=== PATIENT | male | born 1950 | race American Indian/Alaskan Native ===

== ENCOUNTER → 2018-07-13 11:00 | Outpatient (CLI) | payer MEDICARE, MEDICAID, SELFPAY ==
[2018-07-13 12:13] LABS: Add Manual Diff / Slide Review NO; Basophils Percent Auto 0.6 % (0-2); Eosinophils Percent Auto 2.8 % (2-4); Hematocrit 36.1 % (41-53); Hemoglobin 12.3 g/dL (13.5-17.5); Lymphocytes Percent Auto 15.5 % (25-40); Mean Corpuscular HGB Conc 34.1 % (30-36); Mean Corpuscular Hemoglobin 27.9 PG (26-34); Mean Corpuscular Volume 81.9 fL (80-100); Neutrophils Absolute Auto 7200 /uL (3000-5900); Neutrophils Percent Auto 74.1 % (50-75); Platelet Count 280 X10^3/uL (150-400); Red Blood Cell Count 4.41 X10^6/uL (4.5-5.9); White Blood Cell Count 9.7 X10^3/uL (4.5-11.0)
[2018-07-13 12:19] LABS: INR 1.3 (0.9-1.3); Prothrombin Time 14.5 SECONDS (10.1-12.7)
[2018-07-13 12:24] LABS: Alanine Aminotransferase 25 IU/L (21-72); Albumin 3.7 g/dL (3.5-5.0); Alkaline Phosphatase 148 U/L (38-126); Aspartate Aminotransferase 23 IU/L (17-59); BUN Creatinine Ratio 9.3 (6-22); Bilirubin Total 1.5 mg/dL (0.2-1.3); Bilirubin Unconjugated 1.1 mg/dL (0.0-1.1); Blood Urea Nitrogen 13 mg/dL (9-20); Carbon Dioxide 25 mmol/L (22-32); Chloride 108 mmol/L (98-107); Estimated Glomerular Filt Rate 50.5 mL/min (>60); Gamma Glutamyl Transpeptidase 108 U/L (15-73); Globulin 3.8 g/dL (1.7-4.1); Glucose 117 mg/dL (80-110); HEMOLYSIS < 15 (0-50); Magnesium 1.7 mg/dL (1.6-2.3); Phosphorous 2.8 mg/dL (2.3-3.7); Potassium 4.3 mmol/L (3.4-5.1); Sodium 145 mmol/L (137-145); Total Protein 7.5 g/dL (6.3-8.2)
[2018-07-13 15:11] LABS: Hepatitis B Surface Antigen NEGATIVE s/c (NEGATIVE)
[2018-07-16 05:58] LABS: Tacrolimus 7.1 mcg/L (5.0-20.0)
== END ==
PROVIDERS: Family Provider Registered Nurse; Visit Provider Internal Medicine Gastroenterology
DX: Z94.4 Liver transplant status (principal); Z48.298 Encounter for aftercare following other organ transplant; Z79.899 Other long term (current) drug therapy
CPT/HCPCS: 36415; 80048; 80076; 80197; 82977; 83735; 84100; 85025; 85610; 87340; 87522

== ENCOUNTER → 2018-11-23 13:59 | Outpatient (CLI) | payer MEDICARE, MEDICAID, SELFPAY ==
[2018-11-23 14:34] LABS: Add Manual Diff / Slide Review NO; Basophils Absolute Auto 100 /uL (0-100); Basophils Percent Auto 1.2 % (0-2); Eosinophils Absolute Auto 300 /uL (0-450); Eosinophils Percent Auto 3.2 % (2-4); Hematocrit 35.5 % (41-53); Hemoglobin 12.2 g/dL (13.5-17.5); Lymphocytes Absolute Auto 1700 /uL (1100-4500); Lymphocytes Percent Auto 21.9 % (25-40); Mean Corpuscular HGB Conc 34.3 % (30-36); Mean Corpuscular Hemoglobin 28.7 PG (26-34); Mean Corpuscular Volume 83.6 fL (80-100); Monocytes Absolute Auto 600 /uL (0-900); Monocytes Percent Auto 7.2 % (3-14); Neutrophils Absolute Auto 5300 /uL (1500-7000); Neutrophils Percent Auto 66.5 % (50-75); Platelet Count 298 X10^3/uL (150-400); Red Blood Cell Count 4.25 X10^6/uL (4.5-5.9); White Blood Cell Count 7.9 X10^3/uL (4.5-11.0)
[2018-11-23 14:46] LABS: INR 1.2 (0.9-1.3); Prothrombin Time 14.2 SECONDS (10.1-12.7)
[2018-11-23 14:51] LABS: Gamma Glutamyl Transpeptidase 87 U/L (15-73); Magnesium 1.7 mg/dL (1.6-2.3); Phosphorous 2.7 mg/dL (2.3-3.7)
[2018-11-26 08:24] LABS: Tacrolimus 4.7 mcg/L (5.0-20.0)
== END ==
PROVIDERS: Family Provider Registered Nurse; Visit Provider Internal Medicine Gastroenterology
DX: Z94.4 Liver transplant status (principal); Z79.899 Other long term (current) drug therapy; E55.9 Vitamin D deficiency, unspecified; Z48.298 Encounter for aftercare following other organ transplant
CPT/HCPCS: 36415; 80197; 82977; 83735; 84100; 85025; 85610

== ENCOUNTER 2018-12-20 12:17 | Emergency (ER) | payer MEDICARE, SELFPAY ==
[2018-12-20 12:30] VITALS: PULSE 61; RESP 17; TEMP 36.1; O2SAT 97; BMI 30.2
[2018-12-20 12:44] VITALS: BP 147/87
--- NOTE | 2018-12-20 12:49 | ED_ITS ---
HPI - Nausea/Vomiting/Diarrhea <SIGRID Abarca - Last Filed: 12/20/18 22:07> General Chief complaint: Nausea/Vomiting/Diarrhea Stated complaint: Nausea/Vomitin Time Seen by Provider: 12/20/18 12:49 Source: patient Mode of arrival: ambulatory Limitations: no limitations History of Present Illness HPI Narrative: 68-year-old male with history of liver transplant 10 years ago who is a former smoker here for complaint of nausea vomiting that started earlier today. He reports having multiple episodes of vomiting that started this morning. He denies any chest pain. No shortness of breath. No abdominal pain. No urinary symptoms. No flank pain. He denies any fevers. He does states that he had a night sweats last night. He denies any contact that have similar symptoms. He is ambulatory into the emergency room. No stressors or relievers of his symptoms reported. Related Data Home Medications Medication Instructions Recorded Confirmed tacrolimus 1 mg PO BID 12/20/18 12/20/18 Previous Rx's Medication Instructions Recorded betamethasone dipropionate 0.05 % 1 applictn TOPICAL TIDP PRN #15 11/19/18 topical cream gram ondansetron 4 mg PO BID-TID PRN #12 tab 12/20/18 Allergies Allergy/AdvReac Type Severity Reaction Status Date / Time No Known Drug Allergies Allergy Verified 08/16/18 10:23 Review of Systems <SIGRID Abarca - Last Filed: 12/20/18 22:07> Constitutional Denies chills, Denies fever(s), Denies lethargy and Denies weakness Eyes Denies change in vision, Denies eye discharge, Denies irritation and Denies loss of vision ENT Ears, Nose, Mouth, and Throat: Denies change in voice, Denies neck pain and Denies sore throat Cardiovascular Denies chest pain, Denies irregular heart rhythm, Denies lightheadedness, Denies palpitations, Denies dyspnea, Denies dyspnea on exertion and Denies orthopnea Respiratory Denies cough, Denies dyspnea, Denies dyspnea on exertion and Denies wheezing Gastrointestinal Gastrointestinal: Reports vomiting Genitourinary Denies hematuria, Denies flank pain, Denies urinary incontinence and Denies urinary urgency Musculoskeletal Denies neck pain Integumentary/Breasts Denies pruritus, Denies erythema, Denies rash and Denies wounds Neurologic Denies confusion, Denies loss of vision and Denies weakness Psychiatric Denies anxiety, Denies confusion, Denies depression, Denies homicidal ideation and Denies suicidal ideation Endocrine Denies palpitations Hematologic/Lymphatic Denies easy bruising Allergic/Immunologic Denies wheezing PFSH <SIGRID Abarca - Last Filed: 12/20/18 22:07> Medical History Chronic renal failure, stage 2 (mild) (Chronic) 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 leisure activities: art and other (Anything by water.) Smoking Status: Former smoker Tobacco: How many years used: 20 Smokeless tobacco user: other (Cigarettes) quit status: quit date established (~2000) second hand exposure: Yes (Off and on, nothing prolonged.) alcohol intake: never substance use type: does not use Exam <SIGRID Abarca - Last Filed: 12/20/18 22:07> Initial Vital Signs Initial Vital Signs: Vital Signs Temperature 96.9 F L 12/20/18 12:30 Pulse Rate 61 12/20/18 12:30 Respiratory Rate 17 12/20/18 12:30 Pulse Oximetry 97 12/20/18 12:30 Const General: cooperative and well developed Nutritional Appearance: well nourished Orientation: alert, awake, oriented x3 and not confused [facility] Mouth: oral mucosae normal and moist mucous membranes Eyes General: appearance normal, both eyes and all related structures Eyelids: eyelids normal Conjunctivae: conjunctivae normal Sclera: sclerae normal Pupils: PERRL EOM: EOM intact bilaterally Resp Effort & Inspection: normal respiratory effort, able to speak in complete sentences, no respiratory distress and no use of accessory muscles Auscultation: clear to auscultation bilaterally, no rales, no rhonchi and no wheezes Cardio Rate: regular rate Rhythm: regular rhythm Heart Sounds: no click, no gallops, no murmurs and no rubs Pulses: normal peripheral pulses GI Inspection: non-distended Palpation: soft, no hepatosplenomegaly, No guarding, No pulsatile mass and No tender Auscultation: normal bowel sounds General: No CVA tenderness Skin General: no rashes or lesions noted, No jaundice and No petechiae Neuro General: alert, oriented x3, gait normal and no focal motor deficits Speech: speech normal <Amando Estrada DO - Last Filed: 12/24/18 18:44> Initial Vital Signs Initial Vital Signs: Vital Signs Temperature 96.9 F L 12/20/18 12:30 Pulse Rate 61 12/20/18 12:30 Respiratory Rate 17 12/20/18 12:30 Pulse Oximetry 97 12/20/18 12:30 Course <SIGRID Abarca - Last Filed: 12/20/18 22:07> Orders Ordered: Discontinued Medications Diphenhydramine HCl (Benadryl) 25 mg IV NOW ONE Stop: 12/20/18 13:19 Last Admin: 12/20/18 13:28 Dose: 25 mg Sodium Chloride (Normal Saline 0.9%) 1,000 mls @ 1,000 mls/hr IV BOLUS ONE Stop: 12/20/18 14:06 Last Infusion: 12/20/18 14:18 Dose: 0 mls/hr Admin: 12/20/18 13:07 Dose: 1,000 mls/hr Ondansetron HCl (Zofran) 4 mg IV NOW ONE Stop: 12/20/18 13:05 Last Admin: 12/20/18 13:06 Dose: 4 mg Ondansetron HCl (Zofran) 4 mg IV NOW ONE Stop: 12/20/18 13:08 Last Admin: 12/20/18 13:07 Dose: 4 mg Prochlorperazine (Compazine) 10 mg IV NOW ONE Stop: 12/20/18 13:19 Last Admin: 12/20/18 13:28 Dose: 10 mg Vital Signs - 8 hr 12/20/18 14:38 Pulse Rate 64 Respiratory Rate 16 Blood Pressure [Right Arm] 147/67 H Pulse Oximetry 100 <Amando Estrada DO - Last Filed: 12/24/18 18:44> Orders Ordered: Discontinued Medications Diphenhydramine HCl (Benadryl) 25 mg IV NOW ONE Stop: 12/20/18 13:19 Last Admin: 12/20/18 13:28 Dose: 25 mg Sodium Chloride (Normal Saline 0.9%) 1,000 mls @ 1,000 mls/hr IV BOLUS ONE Stop: 12/20/18 14:06 Last Infusion: 12/20/18 14:18 Dose: 0 mls/hr Admin: 12/20/18 13:07 Dose: 1,000 mls/hr Ondansetron HCl (Zofran) 4 mg IV NOW ONE Stop: 12/20/18 13:05 Last Admin: 12/20/18 13:06 Dose: 4 mg Ondansetron HCl (Zofran) 4 mg IV NOW ONE Stop: 12/20/18 13:08 Last Admin: 12/20/18 13:07 Dose: 4 mg Prochlorperazine (Compazine) 10 mg IV NOW ONE Stop: 12/20/18 13:19 Last Admin: 12/20/18 13:28 Dose: 10 mg Vital Signs - 8 hr 12/20/18 14:38 Pulse Rate 64 Respiratory Rate 16 Blood Pressure [Right Arm] 147/67 H Pulse Oximetry 100 MDM - Nausea/Vomiting/Diarrhea <SIGRID Abarca - Last Filed: 12/20/18 22:07> Lab Data Result diagrams: 12/20/18 13:00 12/20/18 13:00 Lab Results 12/20/18 12/20/18 12/20/18 Range/Units 13:00 13:00 13:00 WBC 8.6 (4.5-11.0) X10^3/uL RBC 4.59 (4.5-5.9) X10^6/uL Hgb 13.2 L (13.5-17.5) g/dL Hct 39.0 L (41-53) % MCV 84.9 (80-100) fL MCH 28.7 (26-34) PG MCHC 33.8 (30-36) % RDW 17.1 H (11.6-14.8) % Plt Count 272 (150-400) X10^3/uL Neut % (Auto) 66.3 (50-75) % Lymph % (Auto) 21.5 L (25-40) % [place] % (Auto) 8.2 (3-14) % Eos % (Auto) 2.6 (2-4) % Baso % (Auto) 1.4 (0-2) % Neut # (Auto) 5700 (7317-6171) /uL Lymph # (Auto) 1800 (1876-4281) /uL [place] # (Auto) 700 (0-900) /uL Eos # (Auto) 200 (0-450) /uL Baso # (Auto) 100 (0-100) /uL PT 14.3 H (10.1-12.7) SECONDS INR 1.2 (0.9-1.3) APTT 33 (26.4-36.2) SECONDS Sodium 140 (137-145) mmol/L Potassium 3.6 (3.4-5.1) mmol/L Chloride 108 H (98-107) mmol/L Carbon Dioxide 18 L (22-32) mmol/L BUN 13 (9-20) mg/dL Creatinine 1.30 H (0.66-1.25) mg/dL Estimated GFR 54.9 L (>60) mL/min BUN/Creatinine Ratio 10.0 (6-22) Glucose 147 H (80-110) mg/dL Calcium 9.0 (8.4-10.2) mg/dL Total Bilirubin 1.6 H (0.2-1.3) mg/dL AST 22 (17-59) IU/L ALT 22 (21-72) IU/L Alkaline Phosphatase 147 H (38-126) U/L Total Protein 8.1 (6.3-8.2) g/dL Albumin 4.0 (3.5-5.0) g/dL Globulin 4.1 (1.7-4.1) g/dL Albumin/Globulin Ratio 1.0 (1.0-2.8) Lipase 145 (23-300) U/L [facility] Narrative Medical decision making narrative: CBC was obtained was unremarkable. INR was normal at 1.2. chemistry was obtained and shows bump in creatinine of 1.3 and decreased GFR at 54.9 most likely due to nausea vomiting. AST and ALT were unremarkable. Alk-phos was mildly elevated at 147. Lipase was normal. He was given anti nausea medication and fluids in the emergency room which reduced his symptoms. He was in no discomfort. Differential between nausea vomiting secondary to a virus or due to daily marijuana use. He is prescribed Zofran to help with any nausea vomiting. Plenty of fluids slowly advance diet as tolerated. Follow up with primary care provider. Return emergency room for any worsening symptoms. <Amando Estrada, - Last Filed: 12/24/18 18:44> Lab Data Lab Results 12/20/18 12/20/18 12/20/18 Range/Units 13:00 13:00 13:00 WBC 8.6 (4.5-11.0) X10^3/uL RBC 4.59 (4.5-5.9) X10^6/uL Hgb 13.2 L (13.5-17.5) g/dL Hct 39.0 L (41-53) % MCV 84.9 (80-100) fL MCH 28.7 (26-34) PG MCHC 33.8 (30-36) % RDW 17.1 H (11.6-14.8) % Plt Count 272 (150-400) X10^3/uL Neut % (Auto) 66.3 (50-75) % Lymph % (Auto) 21.5 L (25-40) % [place] % (Auto) 8.2 (3-14) % Eos % (Auto) 2.6 (2-4) % Baso % (Auto) 1.4 (0-2) % Neut # (Auto) 5700 (2059-9566) /uL Lymph # (Auto) 1800 (1913-2737) /uL [place] # (Auto) 700 (0-900) /uL Eos # (Auto) 200 (0-450) /uL Baso # (Auto) 100 (0-100) /uL PT 14.3 H (10.1-12.7) SECONDS INR 1.2 (0.9-1.3) APTT 33 (26.4-36.2) SECONDS Sodium 140 (137-145) mmol/L Potassium 3.6 (3.4-5.1) mmol/L Chloride 108 H (98-107) mmol/L Carbon Dioxide 18 L (22-32) mmol/L BUN 13 (9-20) mg/dL Creatinine 1.30 H (0.66-1.25) mg/dL Estimated GFR 54.9 L (>60) mL/min BUN/Creatinine Ratio 10.0 (6-22) Glucose 147 H (80-110) mg/dL Calcium 9.0 (8.4-10.2) mg/dL Total Bilirubin 1.6 H (0.2-1.3) mg/dL AST 22 (17-59) IU/L ALT 22 (21-72) IU/L Alkaline Phosphatase 147 H (38-126) U/L Total Protein 8.1 (6.3-8.2) g/dL Albumin 4.0 (3.5-5.0) g/dL Globulin 4.1 (1.7-4.1) g/dL Albumin/Globulin Ratio 1.0 (1.0-2.8) Lipase 145 (23-300) U/L Discharge Plan Departure Patient Disposition: Home Clinical Impression: Nausea & vomiting Qualifiers: Vomiting type: unspecified Vomiting Intractability: non-intractable Qualified Code(s): R11.2 - Nausea with vomiting, unspecified Discharge Date/Time: 12/20/18 15:09 Interventions: ED Discharge Assessment Last Done: 12/20/18 15:09 Instructions: DI for Vomiting -- Adult Activity Restrictions/Additional Instructions: Laboratory results today were unremarkable. Vomiting was improved after anti nausea medication and some fluids. UR prescribed Zofran to help with the nausea vomiting use as directed. Plenty of fluids. Slowly advance diet as tolerated. Follow up with her primary care provider. Return emergency room for any worsening symptoms. Symptoms appear to be due to a virus. May also be due to frequent marijuana use. Prescriptions: New ondansetron 4 mg tablet,disintegrating 4 mg PO BID-TID PRN (Reason: nausea and vomiting) Qty: 12 RF: 0 No Action betamethasone dipropionate 0.05 % cream 1 applictn Topical TIDP PRN (Reason: rash) Qty: 15 RF: 5 tacrolimus 1 mg capsule 1 mg PO BID RF: 0 Referrals: [facility] [Provider Group] <Amando Estrada DO - Last Filed: 12/24/18 18:44> Cosign ED Attending Swapna Attestation: I was available for consultation during this patient's emergency department encounter
[2018-12-20] MEDS: ONDANSETRON 4 MG/2 ML INJ IV ×2 (13:06→13:07)
[2018-12-20] MEDS: SODIUM CHLORIDE 0.9% 1,000 ML 1000 ML IV (13:07)
[2018-12-20 13:11] LABS: Add Manual Diff / Slide Review NO; Basophils Absolute Auto 100 /uL (0-100); Basophils Percent Auto 1.4 % (0-2); Eosinophils Absolute Auto 200 /uL (0-450); Eosinophils Percent Auto 2.6 % (2-4); Hemoglobin 13.2 g/dL (13.5-17.5); Lymphocytes Absolute Auto 1800 /uL (1100-4500); Lymphocytes Percent Auto 21.5 % (25-40); Mean Corpuscular HGB Conc 33.8 % (30-36); Mean Corpuscular Hemoglobin 28.7 PG (26-34); Mean Corpuscular Volume 84.9 fL (80-100); Monocytes Absolute Auto 700 /uL (0-900); Monocytes Percent Auto 8.2 % (3-14); Neutrophils Absolute Auto 5700 /uL (1500-7000); Neutrophils Percent Auto 66.3 % (50-75); Platelet Count 272 X10^3/uL (150-400); Red Blood Cell Count 4.59 X10^6/uL (4.5-5.9); Red Cell Distribution Width 17.1 % (11.6-14.8); White Blood Cell Count 8.6 X10^3/uL (4.5-11.0)
[2018-12-20 13:19] LABS: INR 1.2 (0.9-1.3); Prothrombin Time 14.3 SECONDS (10.1-12.7)
[2018-12-20 13:22] LABS: PTT Partial Thromboplastin Tim 33 SECONDS (26.4-36.2)
[2018-12-20 13:23] LABS: Alanine Aminotransferase 22 IU/L (21-72); Alkaline Phosphatase 147 U/L (38-126); Aspartate Aminotransferase 22 IU/L (17-59); Bilirubin Total 1.6 mg/dL (0.2-1.3); Blood Urea Nitrogen 13 mg/dL (9-20); Carbon Dioxide 18 mmol/L (22-32); Chloride 108 mmol/L (98-107); Estimated Glomerular Filt Rate 54.9 mL/min (>60); Globulin 4.1 g/dL (1.7-4.1); Glucose 147 mg/dL (80-110); HEMOLYSIS 17 (0-50); Lipase 145 U/L (23-300); Potassium 3.6 mmol/L (3.4-5.1); Sodium 140 mmol/L (137-145); Total Protein 8.1 g/dL (6.3-8.2)
[2018-12-20] MEDS: PROCHLORPERAZINE 10 MG/2 ML VIAL IV (13:28)
[2018-12-20] MEDS: diphenhydrAMINE 50 MG/ML VIAL 25 MG IV (13:28)
[2018-12-20 14:38] VITALS: BP 147/67; PULSE 64; RESP 16; O2SAT 100
--- NOTE | 2018-12-20 15:44 | ED.NAVMDI ---
HPI - Nausea/Vomiting/Diarrhea <SIGRID Abarca - Last Filed: 12/20/18 22:09> General Chief complaint: Nausea/Vomiting/Diarrhea Stated complaint: Nausea/Vomitin Time Seen by Provider: 12/20/18 12:49 Source: patient Mode of arrival: ambulatory Limitations: no limitations History of Present Illness HPI Narrative: 68-year-old male with history of a liver transplant 10 years ago and is a nonsmoker here for complaint of having nausea vomiting that started earlier today. He denies any fevers. He does state that he had some chills last night. No abdominal pain. No flank pain. No urinary symptoms. He was tolerating p.o. intake well up until vomiting today. He states he had multiple episodes of vomiting. He denies any stressors relievers of her symptoms. He denies any contacts with similar symptoms. No diarrhea. He denies any shortness of breath or chest pain. MD complaint: nausea and vomiting Related Data Home Medications Medication Instructions Recorded Confirmed tacrolimus 1 mg PO BID 12/20/18 12/20/18 Previous Rx's Medication Instructions Recorded betamethasone dipropionate 0.05 % 1 applictn TOPICAL TIDP PRN #15 11/19/18 topical cream gram ondansetron 4 mg PO BID-TID PRN #12 tab 12/20/18 Allergies Allergy/AdvReac Type Severity Reaction Status Date / Time No Known Drug Allergies Allergy Verified 08/16/18 10:23 Review of Systems <SIGRID Abarca - Last Filed: 12/20/18 22:09> Constitutional Denies fatigue and Denies weakness Eyes Denies loss of vision ENT Ears, Nose, Mouth, and Throat: Denies change in voice, Denies neck pain and Denies sore throat Cardiovascular Denies dyspnea and Denies dyspnea on exertion Respiratory Denies cough, Denies dyspnea, Denies dyspnea on exertion and Denies wheezing Gastrointestinal Gastrointestinal: Reports vomiting Genitourinary Denies hematuria, Denies flank pain, Denies urinary incontinence and Denies urinary urgency Musculoskeletal Denies neck pain Integumentary/Breasts Denies pruritus, Denies erythema, Denies rash and Denies wounds Neurologic Denies confusion, Denies loss of vision and Denies weakness Psychiatric Denies confusion Endocrine Denies fatigue and Denies flushing Allergic/Immunologic Denies wheezing PFSH <SIGRID Abarca - Last Filed: 12/20/18 22:09> Medical History Chronic renal failure, stage 2 (mild) (Chronic) 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[employer] leisure activities: art and other (Anything by water.) Smoking Status: Former smoker Tobacco: How many years used: 20 Smokeless tobacco user: other (Cigarettes) quit status: quit date established () second hand exposure: Yes (Off and on, nothing prolonged.) alcohol intake: never substance use type: does not use Exam <SIGRID Abarca - Last Filed: 12/20/18 22:09> Initial Vital Signs Initial Vital Signs: Vital Signs Temperature 96.9 F L 12/20/18 12:30 Pulse Rate 61 12/20/18 12:30 Respiratory Rate 17 12/20/18 12:30 Pulse Oximetry 97 12/20/18 12:30 Const General: cooperative and well developed Nutritional Appearance: well nourished Orientation: alert, awake, oriented x3 and not confused [facility] Mouth: oral mucosae normal and moist mucous membranes Throat: posterior oropharynx normal Eyes Conjunctivae: conjunctivae normal Sclera: sclerae normal Pupils: PERRL EOM: EOM intact bilaterally Resp Effort & Inspection: normal respiratory effort, able to speak in complete sentences, no respiratory distress and no use of accessory muscles Auscultation: clear to auscultation bilaterally, no rales, no rhonchi and no wheezes Cardio Rate: regular rate Rhythm: regular rhythm Heart Sounds: no click, no gallops, no murmurs and no rubs Pulses: normal peripheral pulses GI Inspection: non-distended Palpation: soft, no hepatosplenomegaly, No guarding, No pulsatile mass and No tender Auscultation: normal bowel sounds General: No CVA tenderness Skin General: no rashes or lesions noted, No jaundice and No petechiae Neuro General: alert, oriented x3, gait normal and no focal motor deficits Speech: speech normal <Amando Estrada DO - Last Filed: 12/24/18 18:44> Initial Vital Signs Initial Vital Signs: Vital Signs Temperature 96.9 F L 12/20/18 12:30 Pulse Rate 61 12/20/18 12:30 Respiratory Rate 17 12/20/18 12:30 Pulse Oximetry 97 12/20/18 12:30 Course <SIGRID Abarca - Last Filed: 12/20/18 22:09> Orders Ordered: Discontinued Medications Diphenhydramine HCl (Benadryl) 25 mg IV NOW ONE Stop: 12/20/18 13:19 Last Admin: 12/20/18 13:28 Dose: 25 mg Sodium Chloride (Normal Saline 0.9%) 1,000 mls @ 1,000 mls/hr IV BOLUS ONE Stop: 12/20/18 14:06 Last Infusion: 12/20/18 14:18 Dose: 0 mls/hr Admin: 12/20/18 13:07 Dose: 1,000 mls/hr Ondansetron HCl (Zofran) 4 mg IV NOW ONE Stop: 12/20/18 13:05 Last Admin: 12/20/18 13:06 Dose: 4 mg Ondansetron HCl (Zofran) 4 mg IV NOW ONE Stop: 12/20/18 13:08 Last Admin: 12/20/18 13:07 Dose: 4 mg Prochlorperazine (Compazine) 10 mg IV NOW ONE Stop: 12/20/18 13:19 Last Admin: 12/20/18 13:28 Dose: 10 mg Vital Signs - 8 hr 12/20/18 14:38 Pulse Rate 64 Respiratory Rate 16 Blood Pressure [Right Arm] 147/67 H Pulse Oximetry 100 <Amando Estrada DO - Last Filed: 12/24/18 18:44> Orders Ordered: Discontinued Medications Diphenhydramine HCl (Benadryl) 25 mg IV NOW ONE Stop: 12/20/18 13:19 Last Admin: 12/20/18 13:28 Dose: 25 mg Sodium Chloride (Normal Saline 0.9%) 1,000 mls @ 1,000 mls/hr IV BOLUS ONE Stop: 12/20/18 14:06 Last Infusion: 12/20/18 14:18 Dose: 0 mls/hr Admin: 12/20/18 13:07 Dose: 1,000 mls/hr Ondansetron HCl (Zofran) 4 mg IV NOW ONE Stop: 12/20/18 13:05 Last Admin: 12/20/18 13:06 Dose: 4 mg Ondansetron HCl (Zofran) 4 mg IV NOW ONE Stop: 12/20/18 13:08 Last Admin: 12/20/18 13:07 Dose: 4 mg Prochlorperazine (Compazine) 10 mg IV NOW ONE Stop: 12/20/18 13:19 Last Admin: 12/20/18 13:28 Dose: 10 mg Vital Signs - 8 hr 12/20/18 14:38 Pulse Rate 64 Respiratory Rate 16 Blood Pressure [Right Arm] 147/67 H Pulse Oximetry 100 MDM - Nausea/Vomiting/Diarrhea <SIGRID Abarca - Last Filed: 12/20/18 22:09> Lab Data Result diagrams: 12/20/18 13:00 12/20/18 13:00 Lab Results 12/20/18 12/20/18 12/20/18 Range/Units 13:00 13:00 13:00 WBC 8.6 (4.5-11.0) X10^3/uL RBC 4.59 (4.5-5.9) X10^6/uL Hgb 13.2 L (13.5-17.5) g/dL Hct 39.0 L (41-53) % MCV 84.9 (80-100) fL MCH 28.7 (26-34) PG MCHC 33.8 (30-36) % RDW 17.1 H (11.6-14.8) % Plt Count 272 (150-400) X10^3/uL Neut % (Auto) 66.3 (50-75) % Lymph % (Auto) 21.5 L (25-40) % Woods % (Auto) 8.2 (3-14) % Eos % (Auto) 2.6 (2-4) % Baso % (Auto) 1.4 (0-2) % Neut # (Auto) 5700 (6035-2295) /uL Lymph # (Auto) 1800 (9851-4553) /uL Woods # (Auto) 700 (0-900) /uL Eos # (Auto) 200 (0-450) /uL Baso # (Auto) 100 (0-100) /uL PT 14.3 H (10.1-12.7) SECONDS INR 1.2 (0.9-1.3) APTT 33 (26.4-36.2) SECONDS Sodium 140 (137-145) mmol/L Potassium 3.6 (3.4-5.1) mmol/L Chloride 108 H (98-107) mmol/L Carbon Dioxide 18 L (22-32) mmol/L BUN 13 (9-20) mg/dL Creatinine 1.30 H (0.66-1.25) mg/dL Estimated GFR 54.9 L (>60) mL/min BUN/Creatinine Ratio 10.0 (6-22) Glucose 147 H (80-110) mg/dL Calcium 9.0 (8.4-10.2) mg/dL Total Bilirubin 1.6 H (0.2-1.3) mg/dL AST 22 (17-59) IU/L ALT 22 (21-72) IU/L Alkaline Phosphatase 147 H (38-126) U/L Total Protein 8.1 (6.3-8.2) g/dL Albumin 4.0 (3.5-5.0) g/dL Globulin 4.1 (1.7-4.1) g/dL Albumin/Globulin Ratio 1.0 (1.0-2.8) Lipase 145 (23-300) U/L ECG Data Interpretation: EKG shows sinus bradycardia with no ST elevation or depression. No ectopy. Ventricular rate of 55. CT pr interval of 139. QRS duration 104. QTC 434. EKG is consistent with prior EKGs. MDM Narrative Medical decision making narrative: Laboratory results today were unremarkable. Nausea vomiting was resolved after anti nausea medication and also fluids. Differential between his symptoms being caused by viral entity or due to his daily use of marijuana. He is prescribed Zofran to help with nausea vomiting. Follow up with primary care provider. Plenty of fluids slowly advance diet as tolerated. For any worsening symptoms return emergency room. <Amando Estrada DO - Last Filed: 12/24/18 18:44> Lab Data Lab Results 12/20/18 12/20/18 12/20/18 Range/Units 13:00 13:00 13:00 WBC 8.6 (4.5-11.0) X10^3/uL RBC 4.59 (4.5-5.9) X10^6/uL Hgb 13.2 L (13.5-17.5) g/dL Hct 39.0 L (41-53) % MCV 84.9 (80-100) fL MCH 28.7 (26-34) PG MCHC 33.8 (30-36) % RDW 17.1 H (11.6-14.8) % Plt Count 272 (150-400) X10^3/uL Neut % (Auto) 66.3 (50-75) % Lymph % (Auto) 21.5 L (25-40) % Woods % (Auto) 8.2 (3-14) % Eos % (Auto) 2.6 (2-4) % Baso % (Auto) 1.4 (0-2) % Neut # (Auto) 5700 (5321-2544) /uL Lymph # (Auto) 1800 (7784-1957) /uL Woods # (Auto) 700 (0-900) /uL Eos # (Auto) 200 (0-450) /uL Baso # (Auto) 100 (0-100) /uL PT 14.3 H (10.1-12.7) SECONDS INR 1.2 (0.9-1.3) APTT 33 (26.4-36.2) SECONDS Sodium 140 (137-145) mmol/L Potassium 3.6 (3.4-5.1) mmol/L Chloride 108 H (98-107) mmol/L Carbon Dioxide 18 L (22-32) mmol/L BUN 13 (9-20) mg/dL Creatinine 1.30 H (0.66-1.25) mg/dL Estimated GFR 54.9 L (>60) mL/min BUN/Creatinine Ratio 10.0 (6-22) Glucose 147 H (80-110) mg/dL Calcium 9.0 (8.4-10.2) mg/dL Total Bilirubin 1.6 H (0.2-1.3) mg/dL AST 22 (17-59) IU/L ALT 22 (21-72) IU/L Alkaline Phosphatase 147 H (38-126) U/L Total Protein 8.1 (6.3-8.2) g/dL Albumin 4.0 (3.5-5.0) g/dL Globulin 4.1 (1.7-4.1) g/dL Albumin/Globulin Ratio 1.0 (1.0-2.8) Lipase 145 (23-300) U/L Discharge Plan Departure Patient Disposition: Home Clinical Impression: Nausea & vomiting Qualifiers: Vomiting type: unspecified Vomiting Intractability: non-intractable Qualified Code(s): R11.2 - Nausea with vomiting, unspecified Discharge Date/Time: 12/20/18 15:09 Interventions: ED Discharge Assessment Last Done: 12/20/18 15:09 Instructions: DI for Vomiting -- Adult Activity Restrictions/Additional Instructions: Laboratory results today were unremarkable. Vomiting was improved after anti nausea medication and some fluids. UR prescribed Zofran to help with the nausea vomiting use as directed. Plenty of fluids. Slowly advance diet as tolerated. Follow up with her primary care provider. Return emergency room for any worsening symptoms. Symptoms appear to be due to a virus. May also be due to frequent marijuana use. Prescriptions: New ondansetron 4 mg tablet,disintegrating 4 mg PO BID-TID PRN (Reason: nausea and vomiting) Qty: 12 RF: 0 No Action betamethasone dipropionate 0.05 % cream 1 applictn Topical TIDP PRN (Reason: rash) Qty: 15 RF: 5 tacrolimus 1 mg capsule 1 mg PO BID RF: 0 Referrals: [facility] [Provider Group] <Amando Estrada DO - Last Filed: 12/24/18 18:44> Cosign ED Attending Swapna Attestation: I was available for consultation during this patient's emergency department encounter
== END 2018-12-20 15:09 | disposition home or self-care (01) ==
PROVIDERS: Emergency Medicine; Emergency Provider Nurse Practitioner Family; Family Provider Registered Nurse
DX: R11.2 Nausea with vomiting, unspecified (principal); R00.1 Bradycardia, unspecified
CPT/HCPCS: 36591; 80053; 83690; 85025; 85610; 85730; 93005; 96361; 96374; 96375; 99283; 99284; J0780; J1200; J2405

== ENCOUNTER → 2019-04-03 10:14 | Outpatient (CLI) | payer MEDICARE, MEDICAID, SELFPAY ==
[2019-04-03 12:17] LABS: INR 1.2 (0.9-1.3); Prothrombin Time 13.4 SECONDS (10.1-12.7)
[2019-04-03 12:33] LABS: Add Manual Diff / Slide Review NO; Basophils Absolute Auto 100 /uL (0-100); Basophils Percent Auto 0.8 % (0-2); Eosinophils Absolute Auto 300 /uL (0-450); Eosinophils Percent Auto 4.1 % (2-4); Hematocrit 37.8 % (41-53); Hemoglobin 13.2 g/dL (13.5-17.5); Lymphocytes Absolute Auto 1600 /uL (1100-4500); Lymphocytes Percent Auto 23.8 % (25-40); Mean Corpuscular HGB Conc 35.1 % (30-36); Mean Corpuscular Hemoglobin 31.1 PG (26-34); Mean Corpuscular Volume 88.5 fL (80-100); Monocytes Absolute Auto 600 /uL (0-900); Monocytes Percent Auto 8.5 % (3-14); Neutrophils Absolute Auto 4200 /uL (1500-7000); Neutrophils Percent Auto 62.8 % (50-75); Platelet Count 174 X10^3/uL (150-400); Red Blood Cell Count 4.27 X10^6/uL (4.5-5.9); Red Cell Distribution Width 15.1 % (11.6-14.8); White Blood Cell Count 6.7 X10^3/uL (4.5-11.0)
[2019-04-03 12:58] LABS: Alanine Aminotransferase 31 IU/L (21-72); Albumin 3.5 g/dL (3.5-5.0); Albumin Globulin Ratio 1.1 (1.0-2.8); Alkaline Phosphatase 68 U/L (38-126); Aspartate Aminotransferase 27 IU/L (17-59); BUN Creatinine Ratio 12.1 (6-22); Bilirubin Total 2.3 mg/dL (0.2-1.3); Blood Urea Nitrogen 17 mg/dL (9-20); Carbon Dioxide 22 mmol/L (22-32); Chloride 111 mmol/L (98-107); Estimated Glomerular Filt Rate 50.4 mL/min (>60); Gamma Glutamyl Transpeptidase 39 U/L (15-73); Globulin 3.2 g/dL (1.7-4.1); Glucose 117 mg/dL (80-110); HEMOLYSIS < 15 (0-50); Magnesium 1.5 mg/dL (1.6-2.3); Potassium 3.8 mmol/L (3.4-5.1); Sodium 142 mmol/L (137-145); Total Protein 6.7 g/dL (6.3-8.2)
[2019-04-03 17:03] LABS: Hepatitis B Surface Antigen NEGATIVE s/c (NEGATIVE)
[2019-04-05 19:43] LABS: Tacrolimus 3.5 mcg/L (5.0-20.0)
== END ==
PROVIDERS: Visit Provider Internal Medicine Gastroenterology
DX: Z94.4 Liver transplant status (principal); Z48.298 Encounter for aftercare following other organ transplant; Z79.899 Other long term (current) drug therapy
CPT/HCPCS: 36415; 80048; 80076; 80197; 82977; 83735; 84100; 85025; 85610; 87340; 87517

== ENCOUNTER → 2021-02-11 13:57 | Outpatient (CLI) | payer MEDICARE, SELFPAY ==
[2021-02-11 14:16] LABS: Add Manual Diff / Slide Review NO; Basophils Absolute Auto 100 /uL (0-100); Basophils Percent Auto 1.1 % (0-2); Eosinophils Absolute Auto 300 /uL (0-450); Eosinophils Percent Auto 3.6 % (2-4); Hematocrit 36.8 % (41-53); Hemoglobin 12.8 g/dL (13.5-17.5); Lymphocytes Absolute Auto 2100 /uL (1100-4500); Mean Corpuscular HGB Conc 34.7 % (30-36); Mean Corpuscular Hemoglobin 29.9 PG (26-34); Mean Corpuscular Volume 86.2 fL (80-100); Monocytes Absolute Auto 700 /uL (0-900); Neutrophils Absolute Auto 4900 /uL (1500-7000); Neutrophils Percent Auto 60.3 % (50-75); Platelet Count 218 X10^3/uL (150-400); Red Blood Cell Count 4.27 X10^6/uL (4.5-5.9); Red Cell Distribution Width 16.2 % (11.6-14.8); White Blood Cell Count 8.2 X10^3/uL (4.5-11.0)
[2021-02-11 15:00] LABS: Alanine Aminotransferase 17 IU/L (<50); Albumin 3.4 g/dL (3.5-5.0); Albumin Globulin Ratio 0.9 (1.0-2.8); Alkaline Phosphatase 127 U/L (38-126); Aspartate Aminotransferase 27 IU/L (17-59); BUN Creatinine Ratio 10.6 (6-22); Bilirubin Total 1.4 mg/dL (0.2-1.3); Bilirubin Unconjugated 1.3 mg/dL (0.0-1.1); Blood Urea Nitrogen 15 mg/dL (9-20); Calcium 8.8 mg/dL (8.4-10.2); Carbon Dioxide 21 mmol/L (22-32); Chloride 114 mmol/L (98-107); Estimated Glomerular Filt Rate 49.7 mL/min (>60); Globulin 3.9 g/dL (1.7-4.1); Glucose 95 mg/dL (80-110); HEMOLYSIS < 15 (0-50); Magnesium 1.9 mg/dL (1.6-2.3); Phosphorous 2.5 mg/dL (2.3-3.7); Potassium 3.9 mmol/L (3.4-5.1); Sodium 143 mmol/L (137-145); Total Protein 7.3 g/dL (6.3-8.2)
[2021-02-12 08:12] LABS: Tacrolimus 4.6 ng/mL (2.0-20.0)
== END ==
PROVIDERS: Referring Provider Internal Medicine Gastroenterology; Visit Provider Internal Medicine Gastroenterology
DX: Z94.4 Liver transplant status (principal); Z79.899 Other long term (current) drug therapy; Z48.298 Encounter for aftercare following other organ transplant
CPT/HCPCS: 36415; 80048; 80076; 80197; 83735; 84100; 85025

== ENCOUNTER → 2021-03-19 12:13 | Outpatient (CLI) | payer MEDICARE, SELFPAY ==
[2021-03-19 14:45] LABS: Hepatitis B Surface Antigen NEGATIVE s/c (NEGATIVE)
[2021-03-21 17:17] LABS: Hepatitis B Virus DNA HBV DNA not detected IU/mL (.)
== END ==
PROVIDERS: Referring Provider Internal Medicine Gastroenterology; Visit Provider Internal Medicine Gastroenterology
DX: Z94.4 Liver transplant status (principal); Z48.298 Encounter for aftercare following other organ transplant; Z79.899 Other long term (current) drug therapy
CPT/HCPCS: 36415; 87340; 87517

== ENCOUNTER → 2021-06-30 11:38 | Outpatient (CLI) | payer MEDICARE, SELFPAY ==
[2021-06-30 12:29] LABS: Add Manual Diff / Slide Review NO; Basophils Absolute Auto 100 /uL (0-100); Basophils Percent Auto 0.7 % (0-2); Eosinophils Absolute Auto 200 /uL (0-450); Eosinophils Percent Auto 2.8 % (2-4); Hematocrit 34.5 % (41-53); Hemoglobin 11.8 g/dL (13.5-17.5); Lymphocytes Absolute Auto 1600 /uL (1100-4500); Lymphocytes Percent Auto 18.7 % (25-40); Mean Corpuscular HGB Conc 34.1 % (30-36); Mean Corpuscular Hemoglobin 28.7 PG (26-34); Mean Corpuscular Volume 84.2 fL (80-100); Monocytes Absolute Auto 700 /uL (0-900); Neutrophils Absolute Auto 6000 /uL (1500-7000); Neutrophils Percent Auto 69.8 % (50-75); Platelet Count 300 X10^3/uL (150-400); Red Cell Distribution Width 16.1 % (11.6-14.8); White Blood Cell Count 8.5 X10^3/uL (4.5-11.0)
[2021-06-30 12:43] LABS: Alanine Aminotransferase 15 IU/L (<50); Albumin 3.6 g/dL (3.5-5.0); Albumin Globulin Ratio 0.9 (1.0-2.8); Alkaline Phosphatase 130 U/L (38-126); Aspartate Aminotransferase 21 IU/L (17-59); BUN Creatinine Ratio 10.4 (6-22); Bilirubin Total 1.1 mg/dL (0.2-1.3); Bilirubin Unconjugated 0.9 mg/dL (0.0-1.1); Blood Urea Nitrogen 14 mg/dL (9-20); Calcium 8.9 mg/dL (8.4-10.2); Carbon Dioxide 25 mmol/L (22-32); Chloride 110 mmol/L (98-107); Estimated Glomerular Filt Rate 52.2 mL/min (>60); Globulin 3.9 g/dL (1.7-4.1); Glucose 131 mg/dL (80-110); HEMOLYSIS < 15 (0-50); Magnesium 1.8 mg/dL (1.6-2.3); Phosphorous 2.5 mg/dL (2.3-3.7); Potassium 4.1 mmol/L (3.4-5.1); Sodium 140 mmol/L (137-145); Total Protein 7.5 g/dL (6.3-8.2)
[2021-07-01 09:38] LABS: Tacrolimus 4.7 ng/mL (2.0-20.0)
== END ==
PROVIDERS: Referring Provider Internal Medicine Gastroenterology; Visit Provider Internal Medicine Gastroenterology
DX: Z79.899 Other long term (current) drug therapy (principal); Z48.298 Encounter for aftercare following other organ transplant; Z94.4 Liver transplant status
CPT/HCPCS: 36415; 80048; 80076; 80197; 83735; 84100; 85025

== ENCOUNTER → 2021-09-22 12:34 | Outpatient (CLI) | payer MEDICARE, SELFPAY ==
[2021-09-22 13:23] LABS: Add Manual Diff / Slide Review NO; Basophils Absolute Auto 100 /uL (0-100); Basophils Percent Auto 0.9 % (0-2); Eosinophils Absolute Auto 300 /uL (0-450); Eosinophils Percent Auto 4.2 % (2-4); Hematocrit 34.4 % (41-53); Lymphocytes Absolute Auto 1700 /uL (1100-4500); Lymphocytes Percent Auto 23.1 % (25-40); Mean Corpuscular HGB Conc 34.8 % (30-36); Mean Corpuscular Volume 83.3 fL (80-100); Monocytes Absolute Auto 700 /uL (0-900); Monocytes Percent Auto 9.6 % (3-14); Neutrophils Absolute Auto 4500 /uL (1500-7000); Neutrophils Percent Auto 62.2 % (50-75); Platelet Count 266 X10^3/uL (150-400); Red Blood Cell Count 4.13 X10^6/uL (4.5-5.9); Red Cell Distribution Width 16.1 % (11.6-14.8); White Blood Cell Count 7.2 X10^3/uL (4.5-11.0)
[2021-09-22 13:30] LABS: INR 1.3 (0.9-1.3); Prothrombin Time 15.1 SECONDS (10.1-12.7)
[2021-09-22 14:29] LABS: Alanine Aminotransferase 13 IU/L (<50); Albumin 3.4 g/dL (3.5-5.0); Albumin Globulin Ratio 0.9 (1.0-2.8); Alkaline Phosphatase 118 U/L (38-126); Aspartate Aminotransferase 20 IU/L (17-59); BUN Creatinine Ratio 10.3 (6-22); Bilirubin Total 1.1 mg/dL (0.2-1.3); Bilirubin Unconjugated 0.9 mg/dL (0.0-1.1); Blood Urea Nitrogen 15 mg/dL (9-20); Calcium 8.8 mg/dL (8.4-10.2); Carbon Dioxide 24 mmol/L (22-32); Chloride 111 mmol/L (98-107); Estimated Glomerular Filt Rate 47.6 mL/min (>60); Gamma Glutamyl Transpeptidase 62 U/L (15-73); Globulin 3.7 g/dL (1.7-4.1); Glucose 73 mg/dL (80-110); HEMOLYSIS < 15 (0-50); Magnesium 1.9 mg/dL (1.6-2.3); Phosphorous 3.1 mg/dL (2.3-3.7); Potassium 3.9 mmol/L (3.4-5.1); Sodium 141 mmol/L (137-145); Total Protein 7.1 g/dL (6.3-8.2)
[2021-09-23 12:06] LABS: Tacrolimus 3.9 ng/mL (2.0-20.0)
[2021-09-23 15:09] LABS: Hepatitis B Surface Antigen NEGATIVE s/c (NEGATIVE)
[2021-09-24 13:18] LABS: Hepatitis B Virus DNA HBV DNA not detected IU/mL (.)
== END ==
PROVIDERS: Referring Provider Internal Medicine Gastroenterology; Visit Provider Internal Medicine Gastroenterology
DX: Z94.4 Liver transplant status (principal); Z48.298 Encounter for aftercare following other organ transplant; Z79.899 Other long term (current) drug therapy
CPT/HCPCS: 36415; 80048; 80076; 80197; 82977; 83735; 84100; 85025; 85610; 87340; 87517

== ENCOUNTER → 2022-03-09 15:51 | Outpatient (CLI) | payer OTHER, SELFPAY ==
[2022-03-09 17:30] LABS: INR 1.3 (0.9-1.3); Prothrombin Time 15.1 SECONDS (10.1-12.7)
[2022-03-09 17:32] LABS: Add Manual Diff / Slide Review NO; Basophils Absolute Auto 100 /uL (0-100); Eosinophils Absolute Auto 200 /uL (0-450); Eosinophils Percent Auto 2.7 % (2-4); Hematocrit 33.8 % (41-53); Hemoglobin 11.9 g/dL (13.5-17.5); Lymphocytes Absolute Auto 1600 /uL (1100-4500); Lymphocytes Percent Auto 21.8 % (25-40); Mean Corpuscular HGB Conc 35.3 % (30-36); Mean Corpuscular Volume 84.7 fL (80-100); Monocytes Absolute Auto 600 /uL (0-900); Monocytes Percent Auto 7.5 % (3-14); Neutrophils Absolute Auto 5000 /uL (1500-7000); Platelet Count 278 X10^3/uL (150-400); Red Blood Cell Count 3.99 X10^6/uL (4.5-5.9); Red Cell Distribution Width 15.4 % (11.6-14.8); White Blood Cell Count 7.5 X10^3/uL (4.5-11.0)
[2022-03-09 17:54] LABS: Alanine Aminotransferase 15 IU/L (<50); Albumin 3.5 g/dL (3.5-5.0); Albumin Globulin Ratio 0.8 (1.0-2.8); Alkaline Phosphatase 125 U/L (38-126); Aspartate Aminotransferase 26 IU/L (17-59); BUN Creatinine Ratio 9.4 (6-22); Bilirubin Total 1.4 mg/dL (0.2-1.3); Bilirubin Unconjugated 1.3 mg/dL (0.0-1.1); Blood Urea Nitrogen 13 mg/dL (9-20); Calcium 8.5 mg/dL (8.4-10.2); Carbon Dioxide 24 mmol/L (22-32); Chloride 110 mmol/L (98-107); Estimated Glomerular Filt Rate 55 mL/min (>60); Gamma Glutamyl Transpeptidase 59 U/L (15-73); Globulin 4.2 g/dL (1.7-4.1); Glucose 111 mg/dL (80-110); HEMOLYSIS < 15 (0-50); Magnesium 1.9 mg/dL (1.6-2.3); Phosphorous 3.1 mg/dL (2.3-3.7); Potassium 3.8 mmol/L (3.4-5.1); Sodium 142 mmol/L (137-145); Total Protein 7.7 g/dL (6.3-8.2)
[2022-03-10 12:09] LABS: Tacrolimus 3.2 ng/mL (2.0-20.0)
[2022-03-10 16:27] LABS: Hepatitis B Surface Antigen NEGATIVE s/c (NEGATIVE)
[2022-03-16 10:06] LABS: Hepatitis B Surf AB Quant <3.1 mIU/mL (Immunity>9.9)
== END ==
PROVIDERS: Referring Provider Internal Medicine Gastroenterology; Visit Provider Internal Medicine Gastroenterology
DX: Z94.4 Liver transplant status (principal); Z48.298 Encounter for aftercare following other organ transplant; Z79.899 Other long term (current) drug therapy
CPT/HCPCS: 36415; 80048; 80076; 80197; 82977; 83735; 84100; 85025; 85610; 86706; 87340

== ENCOUNTER → 2022-03-23 11:38 | Outpatient (CLI) | payer OTHER, SELFPAY ==
[2022-03-23 12:20] LABS: Add Manual Diff / Slide Review NO; Basophils Absolute Auto 100 /uL (0-100); Basophils Percent Auto 0.8 % (0-2); Eosinophils Absolute Auto 200 /uL (0-450); Eosinophils Percent Auto 3.1 % (2-4); Hematocrit 33.6 % (41-53); Hemoglobin 11.8 g/dL (13.5-17.5); Lymphocytes Absolute Auto 1500 /uL (1100-4500); Lymphocytes Percent Auto 18.9 % (25-40); Mean Corpuscular Hemoglobin 29.7 PG (26-34); Mean Corpuscular Volume 84.9 fL (80-100); Monocytes Absolute Auto 700 /uL (0-900); Monocytes Percent Auto 8.7 % (3-14); Neutrophils Absolute Auto 5400 /uL (1500-7000); Neutrophils Percent Auto 68.5 % (50-75); Platelet Count 276 X10^3/uL (150-400); Red Blood Cell Count 3.95 X10^6/uL (4.5-5.9); Red Cell Distribution Width 15.7 % (11.6-14.8); White Blood Cell Count 7.9 X10^3/uL (4.5-11.0)
[2022-03-23 12:38] LABS: INR 1.4 (0.9-1.3); Prothrombin Time 15.5 SECONDS (10.1-12.7)
[2022-03-23 12:52] LABS: Alanine Aminotransferase 16 IU/L (<50); Albumin 3.2 g/dL (3.5-5.0); Albumin Globulin Ratio 0.8 (1.0-2.8); Alkaline Phosphatase 137 U/L (38-126); Aspartate Aminotransferase 25 IU/L (17-59); BUN Creatinine Ratio 9.8 (6-22); Bilirubin Total 1.4 mg/dL (0.2-1.3); Bilirubin Unconjugated 1.1 mg/dL (0.0-1.1); Blood Urea Nitrogen 13 mg/dL (9-20); Calcium 8.5 mg/dL (8.4-10.2); Carbon Dioxide 22 mmol/L (22-32); Chloride 110 mmol/L (98-107); Estimated Glomerular Filt Rate 57 mL/min (>60); Gamma Glutamyl Transpeptidase 68 U/L (15-73); Globulin 3.9 g/dL (1.7-4.1); Glucose 112 mg/dL (80-110); HEMOLYSIS < 15 (0-50); Magnesium 1.8 mg/dL (1.6-2.3); Phosphorous 2.7 mg/dL (2.3-3.7); Potassium 3.9 mmol/L (3.4-5.1); Sodium 141 mmol/L (137-145); Total Protein 7.1 g/dL (6.3-8.2)
[2022-03-24 09:18] LABS: Tacrolimus 2.1 ng/mL (2.0-20.0)
[2022-03-24 16:32] LABS: Hepatitis B Surface Antigen NEGATIVE s/c (NEGATIVE)
[2022-03-27 11:30] LABS: Hepatitis B Virus DNA HBV DNA not detected IU/mL (.)
== END ==
PROVIDERS: Referring Provider Internal Medicine Gastroenterology; Visit Provider Internal Medicine Gastroenterology
DX: Z79.899 Other long term (current) drug therapy (principal); Z48.298 Encounter for aftercare following other organ transplant; Z94.4 Liver transplant status
CPT/HCPCS: 36415; 80048; 80076; 80197; 82977; 83735; 84100; 85025; 85610; 87340; 87517

== ENCOUNTER → 2022-06-07 11:07 | Outpatient (CLI) | payer OTHER, SELFPAY ==
[2022-06-07 14:03] LABS: Add Manual Diff / Slide Review NO; Basophils Absolute Auto 100 /uL (0-100); Basophils Percent Auto 0.7 % (0-2); Eosinophils Absolute Auto 300 /uL (0-450); Eosinophils Percent Auto 3.4 % (2-4); Hematocrit 33.8 % (41-53); Hemoglobin 11.6 g/dL (13.5-17.5); Lymphocytes Absolute Auto 1600 /uL (1100-4500); Lymphocytes Percent Auto 18.1 % (25-40); Mean Corpuscular HGB Conc 34.2 % (30-36); Mean Corpuscular Hemoglobin 28.5 PG (26-34); Mean Corpuscular Volume 83.3 fL (80-100); Monocytes Absolute Auto 700 /uL (0-900); Monocytes Percent Auto 7.8 % (3-14); Neutrophils Absolute Auto 6000 /uL (1500-7000); Platelet Count 323 X10^3/uL (150-400); Red Blood Cell Count 4.06 X10^6/uL (4.5-5.9); Red Cell Distribution Width 16.1 % (11.6-14.8); White Blood Cell Count 8.6 X10^3/uL (4.5-11.0)
[2022-06-07 14:28] LABS: INR 1.4 (0.9-1.3); Prothrombin Time 16.1 SECONDS (10.1-12.7)
[2022-06-07 14:46] LABS: Alanine Aminotransferase 13 IU/L (<50); Albumin 3.2 g/dL (3.5-5.0); Albumin Globulin Ratio 0.8 (1.0-2.8); Alkaline Phosphatase 127 U/L (38-126); Aspartate Aminotransferase 21 IU/L (17-59); BUN Creatinine Ratio 9.1 (6-22); Bilirubin Total 1.3 mg/dL (0.2-1.3); Blood Urea Nitrogen 12 mg/dL (9-20); Calcium 8.5 mg/dL (8.4-10.2); Carbon Dioxide 22 mmol/L (22-32); Chloride 110 mmol/L (98-107); Estimated Glomerular Filt Rate 58 mL/min (>60); Gamma Glutamyl Transpeptidase 60 U/L (15-73); Globulin 4.1 g/dL (1.7-4.1); Glucose 92 mg/dL (80-110); HEMOLYSIS < 15 (0-50); Magnesium 1.7 mg/dL (1.6-2.3); Potassium 4.1 mmol/L (3.4-5.1); Sodium 140 mmol/L (137-145); Total Protein 7.3 g/dL (6.3-8.2)
[2022-06-08 09:56] LABS: Tacrolimus 3.1 ng/mL (2.0-20.0)
[2022-06-10 03:44] LABS: Hepatitis B Virus DNA HBV DNA not detected IU/mL (.)
[2022-06-10 16:19] LABS: Hepatitis B Surface Antigen NEGATIVE s/c (NEGATIVE)
== END ==
PROVIDERS: Referring Provider Internal Medicine Gastroenterology; Visit Provider Internal Medicine Gastroenterology
DX: Z79.899 Other long term (current) drug therapy (principal); Z94.4 Liver transplant status; Z48.298 Encounter for aftercare following other organ transplant
CPT/HCPCS: 36415; 80048; 80076; 80197; 82977; 83735; 84100; 85025; 85610; 87340; 87517

== ENCOUNTER → 2022-08-04 13:17 | Outpatient (CLI) | payer OTHER, SELFPAY ==
[2022-08-04 15:01] LABS: Add Manual Diff / Slide Review NO; Basophils Absolute Auto 100 /uL (0-100); Basophils Percent Auto 0.9 % (0-2); Eosinophils Absolute Auto 300 /uL (0-450); Eosinophils Percent Auto 4.4 % (2-4); Hematocrit 35.3 % (41-53); Hemoglobin 11.9 g/dL (13.5-17.5); Lymphocytes Absolute Auto 1600 /uL (1100-4500); Lymphocytes Percent Auto 20.1 % (25-40); Mean Corpuscular HGB Conc 33.8 % (30-36); Mean Corpuscular Hemoglobin 28.2 PG (26-34); Mean Corpuscular Volume 83.5 fL (80-100); Monocytes Absolute Auto 600 /uL (0-900); Monocytes Percent Auto 8.3 % (3-14); Neutrophils Absolute Auto 5200 /uL (1500-7000); Neutrophils Percent Auto 66.3 % (50-75); Platelet Count 276 X10^3/uL (150-400); Red Blood Cell Count 4.22 X10^6/uL (4.5-5.9); Red Cell Distribution Width 16.6 % (11.6-14.8); White Blood Cell Count 7.8 X10^3/uL (4.5-11.0)
[2022-08-04 15:29] LABS: INR 1.3 (0.9-1.3); Prothrombin Time 15.4 SECONDS (10.1-12.7)
[2022-08-04 15:45] LABS: Alanine Aminotransferase 15 IU/L (<50); Albumin 3.3 g/dL (3.5-5.0); Albumin Globulin Ratio 0.8 (1.0-2.8); Alkaline Phosphatase 137 U/L (38-126); Aspartate Aminotransferase 19 IU/L (17-59); BUN Creatinine Ratio 9.3 (6-22); Bilirubin Total 1.3 mg/dL (0.2-1.3); Bilirubin Unconjugated 1.2 mg/dL (0.0-1.1); Blood Urea Nitrogen 14 mg/dL (9-20); Calcium 8.5 mg/dL (8.4-10.2); Carbon Dioxide 22 mmol/L (22-32); Chloride 109 mmol/L (98-107); Estimated Glomerular Filt Rate 49 mL/min (>60); Gamma Glutamyl Transpeptidase 55 U/L (15-73); Globulin 4.2 g/dL (1.7-4.1); Glucose 97 mg/dL (80-110); HEMOLYSIS < 15 (0-50); Magnesium 1.8 mg/dL (1.6-2.3); Phosphorous 3.6 mg/dL (2.3-3.7); Potassium 4.1 mmol/L (3.4-5.1); Sodium 142 mmol/L (137-145); Total Protein 7.5 g/dL (6.3-8.2)
[2022-08-04 16:10] LABS: Hepatitis B Surface Antigen NEGATIVE s/c (NEGATIVE)
[2022-08-05 09:44] LABS: Tacrolimus 3.7 ng/mL (2.0-20.0)
[2022-08-16 13:36] LABS: BK Virus, DNA, QN, PCR Negative
== END ==
PROVIDERS: Referring Provider Internal Medicine Gastroenterology; Visit Provider Internal Medicine Gastroenterology
DX: Z48.298 Encounter for aftercare following other organ transplant (principal); Z94.4 Liver transplant status; Z79.899 Other long term (current) drug therapy
CPT/HCPCS: 36415; 80048; 80076; 80197; 82977; 83735; 84100; 85025; 85610; 87340; 87799

== ENCOUNTER 2022-09-12 20:06 | Emergency (ER) | payer OTHER, SELFPAY ==
[2022-09-12] VITALS (17 sets, daily range): BP systolic 149–210; BP diastolic 72–125; PULSE 53–71; RESP 18; TEMP 36.6; O2SAT 94–100; BMI 29.5
--- NOTE | 2022-09-12 20:06 | ED_ITS ---
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 He states that he has had nasal congestion, runny nose, sore throat and cough as well as persistent vomiting. He states he has no pain whatsoever but has become fatigued and lightheaded and has not been able to take his medications under this time frame. He denies any diarrhea or constipation and has no urinary complaints such as dysuria, frequency or urgency. He denies headache or blurred vision. He has no chest pain or shortness of breath. He denies any exposure to other obviously ill persons. Related Data Home Medications Medication Instructions Recorded Confirmed tacrolimus 1 mg capsule, 1 mg PO BID 12/20/18 12/20/18 immediate-release Previous Rx's Medication Instructions Recorded ondansetron 4 mg disintegrating 4 mg PO BID-TID PRN nausea and 12/20/18 tablet vomiting #12 tabs betamethasone dipropionate 0.05 % 1 applic topical TIDP PRN rash #15 03/17/21 topical cream grams ondansetron 4 mg disintegrating 4 mg PO TID-QID PRN nausea and 09/13/22 tablet vomiting #10 tabs Allergies Allergy/AdvReac Type Severity Reaction Status Date / Time No Known Drug Allergies Allergy Verified 08/16/18 10:23 Review of Systems Review of Systems Narrative: GENERAL: See HPI HEENT: See HPI RESPIRATORY: See HPI CARDIOVASCULAR: Denies chest pain, palpitations, orthopnea, edema, GASTROINTESTINAL: See HPI : Denies dysuria, frequency, incontinence, hematuria, urinary retention. MUSCULOSKELETAL: denies weakness, joint pain, or bony pain SKIN: Denies rash, skin lesions, or other NEUROLOGIC: Denies weakness, headache, numbness, change in speech, confusion, seizures, incoordination. PSYCHIATRIC: No concerning psychosocial issues. 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 Well-developed patient, in mild distress. Holding an emesis bag and dry heaving HEAD: Atraumatic. Normocephalic. EYES: Pupils equal round and reactive. Extraocular motions intact. No scleral icterus. No injection or drainage. ENT: Nose without bleeding, purulent drainage. Throat without erythema, tonsillar hypertrophy or exudate. Airway patent. NECK: Trachea midline. Non tender CARDIOVASCULAR: Regular rate and rhythm without murmurs, gallops, or rubs. RESPIRATORY: Clear to auscultation. Breath sounds equal bilaterally. No wheezes, rales, or rhonchi. GASTROINTESTINAL: Abdomen soft, non-tender, nondistended. EXTREMITIES: No edema or joint tenderness. BACK: Nontender without deformity or crepitance. No flank tenderness. NEURO: AOx3. SKIN: No rash or erythema of visible areas Initial Vital Signs Initial Vital Signs: Vital Signs Pulse Rate 58 L 09/12/22 20:16 Pulse Oximetry 100 09/12/22 20:16 Course Orders Ordered: ED Orders 09/12/22 20:15 Complete Blood Count AUTO DIFF Stat Comprehensive Metabolic Panel Stat Covid-19 + FLU A/B + RSV - PCR Stat Lipase Stat Magnesium Stat 09/12/22 20:40 Blood Culture Stat 09/12/22 22:31 CT chest abd pel w con Stat Discontinued Medications Hydralazine HCl (Hydralazine 20 Mg/Ml Vial) 10 mg IV NOW ONE Stop: 09/12/22 22:32 Last Admin: 09/12/22 22:36 Dose: 10 mg Documented By: DARWIN Sodium Chloride (Normal Saline 0.9%) 1,000 mls @ 1,000 mls/hr IV BOLUS ONE Stop: 09/12/22 21:04 Last Infusion: 09/12/22 22:33 Dose: 0 mls/hr Documented By: Admin: 09/12/22 20:27 Dose: 1,000 mls/hr Documented By: DARWIN Labetalol HCl (Labetalol 20 Mg/4 Ml Syringe) 10 mg IV NOW ONE Stop: 09/12/22 21:19 Last Admin: 09/12/22 22:33 Dose: Not Given Documented By: DARWIN Ondansetron HCl (Ondansetron 4 Mg/2 Ml Inj) 4 mg IV NOW ONE Stop: 09/12/22 20:06 Last Admin: 09/12/22 20:27 Dose: 4 mg Documented By: DARIWN Pantoprazole Sodium (Pantoprazole 40 Mg Vial) 40 mg IV NOW ONE Stop: 09/12/22 22:32 Last Admin: 09/12/22 22:36 Dose: 40 mg Documented By: DARWIN Reevaluation(s) Reevaluation #1: Patient doing much better, no longer vomiting, tolerating orals in absent of any pain. He states that these lesions have been known for many years and even been biopsied in the past and suggest a speak with hepatology at the [facility] to confirm. Consultations Consultation #1: discussed with hepatology at ([facility]). Images have been pushed and discussion regarding patient's history, physical, labs and imaging would suggest that the symptoms that brought him in today are unrelated to these abnormal findings on imaging which date back to at least 2014. She recommends against any other specific intervention, appropriate for discharge with typical return precautions and encouraged to follow-up Vital Signs Vital signs: Vital Signs - 8 hr 09/12/22 20:19 09/12/22 20:16 09/12/22 20:30 Temperature 97.9 F Pulse Rate 58 L 58 L 65 Respiratory Rate 18 Blood Pressure 203/90 H Pulse Oximetry 98 100 97 Oxygen Delivery Method Room Air 09/12/22 20:31 09/12/22 20:31 09/12/22 21:00 Temperature Pulse Rate 63 69 Respiratory Rate Blood Pressure 210/125 H Pulse Oximetry 99 100 Oxygen Delivery Method 09/12/22 21:01 09/12/22 21:01 09/12/22 21:31 Temperature Pulse Rate 61 71 Respiratory Rate Blood Pressure 204/93 H Pulse Oximetry 99 94 Oxygen Delivery Method 09/12/22 21:31 09/12/22 22:00 09/12/22 22:00 Temperature Pulse Rate 58 L Respiratory Rate Blood Pressure 164/79 H 179/88 H Pulse Oximetry 100 Oxygen Delivery Method 09/12/22 22:33 09/12/22 22:36 09/12/22 22:29 Temperature Pulse Rate 53 L 53 L 58 L Respiratory Rate Blood Pressure 171/74 H Pulse Oximetry 99 Oxygen Delivery Method 09/12/22 22:29 09/12/22 22:30 09/12/22 22:30 Temperature Pulse Rate 63 Respiratory Rate Blood Pressure 166/123 H 171/74 H Pulse Oximetry 98 Oxygen Delivery Method 09/12/22 22:54 09/12/22 22:54 09/12/22 23:00 Temperature Pulse Rate 62 58 L Respiratory Rate Blood Pressure 172/77 H Pulse Oximetry 98 100 Oxygen Delivery Method 09/12/22 23:01 09/12/22 23:01 09/12/22 23:39 Temperature Pulse Rate 62 Respiratory Rate Blood Pressure 196/86 H 149/72 H Pulse Oximetry 99 Oxygen Delivery Method 09/12/22 23:30 09/12/22 23:30 09/13/22 00:00 Temperature Pulse Rate 70 Respiratory Rate 18 Blood Pressure 149/72 H 156/73 H Pulse Oximetry 98 Oxygen Delivery Method 09/13/22 00:00 09/13/22 00:15 09/13/22 00:19 Temperature Pulse Rate 73 Respiratory Rate Blood Pressure 167/93 H Pulse Oximetry 98 99 Oxygen Delivery Method 09/13/22 00:30 09/13/22 00:30 09/13/22 01:00 Temperature Pulse Rate 69 Respiratory Rate Blood Pressure 154/70 H 169/82 H Pulse Oximetry 98 Oxygen Delivery Method 09/13/22 01:00 09/13/22 01:30 09/13/22 01:30 Temperature Pulse Rate 72 70 Respiratory Rate Blood Pressure 166/76 H Pulse Oximetry 96 96 Oxygen Delivery Method 09/13/22 02:00 09/13/22 02:00 Temperature Pulse Rate 62 Respiratory Rate Blood Pressure 180/82 H Pulse Oximetry 98 Oxygen Delivery Method MDM - Nausea/Vomiting/Diarrhea Lab Data Result diagrams: 09/12/22 20:15 09/12/22 20:15 Labs: Lab Results 09/12/22 09/12/22 09/12/22 Range/Units 20:15 20:15 20:15 WBC 10.6 (4.5-11.0) X10^3/uL RBC 4.76 (4.5-5.9) X10^6/uL Hgb 13.5 (13.5-17.5) g/dL Hct 39.3 L (41-53) % MCV 82.5 (80-100) fL MCH 28.3 (26-34) PG MCHC 34.3 (30-36) % RDW 17.0 H (11.6-14.8) % Plt Count 278 (150-400) X10^3/uL Neut % (Auto) 85.7 H (50-75) % Lymph % (Auto) 8.7 L (25-40) % [place] % (Auto) 4.3 (3-14) % Eos % (Auto) 0.8 L (2-4) % Baso % (Auto) 0.5 (0-2) % Neut # (Auto) 9000 H (6172-1441) /uL Lymph # (Auto) 900 L (8763-2132) /uL [place] # (Auto) 400 (0-900) /uL Eos # (Auto) 100 (0-450) /uL Baso # (Auto) 100 (0-100) /uL Sodium 145 (137-145) mmol/L Potassium 3.3 L (3.4-5.1) mmol/L Chloride 112 H (98-107) mmol/L Carbon Dioxide 17 L (22-32) mmol/L BUN 17 (9-20) mg/dL Creatinine 1.37 H (0.66-1.25) mg/dL Estimated GFR 55 L (>60) mL/min BUN/Creatinine Ratio 12.4 (6-22) Glucose 162 H (80-110) mg/dL Calcium 9.0 (8.4-10.2) mg/dL Magnesium 1.7 (1.6-2.3) mg/dL Total Bilirubin 2.4 H (0.2-1.3) mg/dL AST 25 (17-59) IU/L ALT 21 (<50) IU/L Alkaline Phosphatase 182 H (38-126) U/L Total Protein 8.8 H (6.3-8.2) g/dL Albumin 4.0 (3.5-5.0) g/dL Globulin 4.8 H (1.7-4.1) g/dL Albumin/Globulin Ratio 0.8 L (1.0-2.8) Lipase 57 (23-300) U/L SARS-CoV-2 (PCR) Negative (Negative) Influenza A (RT-PCR) Flu a negative (NEGATIVE) Influenza B (RT-PCR) Flu b negative (NEGATIVE) RSV (PCR) Negative (Negative) Imaging Data CT scan - abdomen/pelvis: Radiologist's Impression: Marquis Gardner??72??M??1950 ? Allergy/Adv: No Known Drug Allergies (More??) Close Chest/Abdomen/Pelvis CT (Signed) Blair Godwin - 09/12/22 Launch?[place] [address] CT Scan Report Signed Patient: Marquis Gardner MR#: [id number] : 1950 Acct:[id number] Age/Sex: 72 / M Date of Service: 09/12/22 Loc: ED Accession Number: [id number] ?? Procedure: CT chest abd pel w con Ordering Provider: Luke Sahu D.O. PROCEDURE:? CT CHEST ABD PEL W CON ? INDICATIONS:? persistent vomiting, history liver transplant ? TECHNIQUE:? After the administration of intravenous contrast, axial sections acquired from the supraclavicular neck to the pubic symphysis.? Coronal and sagittal reformats were performed.? For radiation dose reduction, the following was used:? automated exposure control, adjustment of mA and/or kV according to patient size.? ? COMPARISON: ? [facility], CT, ABDOMEN/PELVIS WITH CONTRAST, 02/08/2017, 11:01. ? FINDINGS:? Image quality:? Excellent.? ? CHEST:? Lower Neck: No lymphadenopathy by size criteria. Thyroid:? Visualized thyroid demonstrates no discrete nodules. Axillae: No lymphadenopathy by size criteria. Chest Wall:? Unremarkable.? ? Lungs and Airways:? There is mild dependent atelectasis and scarring in the lungs.? No acute consolidation.? No suspicious pulmonary nodules. The trachea and central airways are patent. Pleura: No pneumothorax or pleural effusions.? ? Heart: Heart size is normal.? No pericardial effusion. Thoracic Vessels: The aorta appears normal in size.? There is mild enlargement of the pulmonary arteries, with the main pulmonary artery measuring up to 3.1 cm suggestive of pulmonary arterial hypertension. Mediastinum and Britt: No lymphadenopathy by size criteria. Esophagus: No wall thickening.? There is a small hiatal hernia. ? ABDOMEN: Liver:? Postsurgical changes are demonstrated consistent with prior liver transplant.? Multiple, at least 10, ill-defined hypoattenuating mass lesions are demonstrated throughout the right and left lobes.? The majority of the lesions demonstrate a target appearance.? A mill representative index mass lesion inferiorly in the right hepatic lobe on series 2, image 59 measures up to 3.5 x 3.4 cm in transverse dimension.? The portal veins appear patent.? The hepatic arteries are not well evaluated on the current phase of imaging.? The hepatic veins are also not well opacified on the current phase of imaging. Gallbladder:? Within normal limits without calcified gallstones.? ? Biliary ducts:? No biliary ductal dilatation.? ? Pancreas:? Unremarkable.? ? Spleen:? Normal in size.? ? Adrenal Glands:? No adrenal nodules.? ? Kidneys and Ureters:? No hydronephrosis.? ? ? Stomach and Bowel:? Stomach, small bowel loops, and colon are normal in caliber and wall thickness.? Peritoneum:? No abnormal intraperitoneal fluid.? No free air.? ? Ventral Wall: ? No hernia.? Abdominal Nodes:? No retroperitoneal or mesenteric adenopathy by size criteria.? Vessels:? Aorta and inferior vena cava are normal in size.? There is enlargement of the splenic vein with multiple splenic varices and a splenorenal shunt.? Findings a re consistent with portal hypertension.? ? PELVIS: Pelvic Organs:? Unremarkable.? ? Bladder:? Unremarkable.? ? Pelvic Nodes: No enlarged lymph nodes.? Miscellaneous: No inguinal hernias are seen. ? ? ? Bones:? Visualized osseous structures demonstrate no suspicious focal lesions. IMPRESSION:? ? 1.? Multiple hypoattenuating target mass lesions demonstrated throughout the liver.? The findings are suggestive of a neoplastic process, likely metastatic disease.? The differential includes multifocal hepatocellular carcinoma or abscess collections although these are considered less likely. ? 2.? Enlargement of the splenic vein as well as prominent splenorenal varices and a splenorenal shunt consistent sequelae of portal hypertension. ? 3.? Postsurgical changes consistent with prior liver transplant redemonstrated. ? Dictated by: Blair Godwin M.D. on 09/13/2022 at 0:07 ? ? Approved by: Blair Godwin M.D. on 09/13/2022 at 0:19 ? MDM Narrative Medical decision making narrative: 72-year-old male former smoker with history of alcoholic cirrhosis resulting in liver transplant many years ago on tacrolimus presents with persistent nausea and vomiting for the past few days. Multiple diagnoses considered including posttransplant abnormality, COVID, influenza, bowel obstruction. Patient has labs are largely normal, slightly elevated bilirubin thought to be an acute phase reactive to his underlying illness, particularly given his lack of pain or abnormal findings on imaging pertaining to gallbladder. Patient responds quite well to antihypertensives, fluids and is absent of any symptoms for multiple hours while waiting for CT and consultations. I have discussed with hepatology at the [facility] who have reviewed today's history and physical, labs and imaging, stating that it is essentially unchanged since 2014 and that his response to therapies reassuring and no further investigation or therapies are indicated, recommending typical return precautions and close follow-up. Discharge Plan Departure Patient Disposition: Home Clinical Impression: Vomiting Instructions: DI for Vomiting -- Adult Activity Restrictions/Additional Instructions: *You have been diagnosed with [vomiting] * As we discussed your history and physical exam as well as labs and imaging are very reassuring. There is no evidence of any severe diagnoses that would require a specific or immediate intervention. The CT scan shows abnormal spots on your liver but after consultation with the liver specialist and the [facility] they confirmed that these have been present since 2014 and are of no significant concern today *What to do: *Please continue to take your regular medications as directed. [x ] New medication prescriptions sent to your pharmacy: [ [facility]] *Please follow up with your primary care provider in 2-3 days, call for an appointment. Let them know you were seen in the Emergency Department and that we ask that you be seen in follow up. We will electronically transmit a record of today's note if your PCP is in our system *Please consider a clear liquid diet for the next 24-48 hours and then slowly advance to regular as tolerated. Also, try to avoid alcohol, nicotine, caffeine, spicy, acidic or fatty foods as this may worsen your symptoms *If you do not have a primary care provider please contact the [facility] Resource line at [phone]. They will ask some questions about your medical history and help get you set up with a doctor in the community. *Return to Emergency Department if you should have any new, worsening or conc erning symptoms, such as [fever greater than 101 F, shaking chills, worsening pain, persistent vomiting or other bothersome symptoms] Prescriptions: New ondansetron 4 mg tablet,disintegrating 4 mg PO TID-QID PRN (Reason: nausea and vomiting) Qty: 10 0RF No Action betamethasone dipropionate 0.05 % cream 1 applic Topical TIDP PRN (Reason: rash) Qty: 15 0RF Rx Instructions: PT NOT SEEN SINCE 2018 HE WILL NEED TO BE SEEN BEFORE ANY FUTURE FILLS 03/17/21 tacrolimus 1 mg capsule 1 mg PO BID ondansetron 4 mg tablet,disintegrating 4 mg PO BID-TID PRN (Reason: nausea and vomiting) Qty: 12 0RF Referrals: Miscellaneous,Doctor, MD [Primary Care Provider] -
[2022-09-12 20:24] LABS: Add Manual Diff / Slide Review NO; Basophils Absolute Auto 100 /uL (0-100); Basophils Percent Auto 0.5 % (0-2); Eosinophils Absolute Auto 100 /uL (0-450); Eosinophils Percent Auto 0.8 % (2-4); Hematocrit 39.3 % (41-53); Hemoglobin 13.5 g/dL (13.5-17.5); Lymphocytes Absolute Auto 900 /uL (1100-4500); Lymphocytes Percent Auto 8.7 % (25-40); Mean Corpuscular HGB Conc 34.3 % (30-36); Mean Corpuscular Hemoglobin 28.3 PG (26-34); Mean Corpuscular Volume 82.5 fL (80-100); Monocytes Absolute Auto 400 /uL (0-900); Monocytes Percent Auto 4.3 % (3-14); Neutrophils Absolute Auto 9000 /uL (1500-7000); Neutrophils Percent Auto 85.7 % (50-75); Platelet Count 278 X10^3/uL (150-400); Red Blood Cell Count 4.76 X10^6/uL (4.5-5.9); White Blood Cell Count 10.6 X10^3/uL (4.5-11.0)
[2022-09-12] MEDS: SODIUM CHLORIDE 0.9% 1,000 ML 1000 ML IV (20:27)
[2022-09-12] MEDS: ONDANSETRON 4 MG/2 ML INJ IV (20:27)
[2022-09-12 20:39] LABS: Alanine Aminotransferase 21 IU/L (<50); Albumin Globulin Ratio 0.8 (1.0-2.8); Alkaline Phosphatase 182 U/L (38-126); Aspartate Aminotransferase 25 IU/L (17-59); BUN Creatinine Ratio 12.4 (6-22); Bilirubin Total 2.4 mg/dL (0.2-1.3); Blood Urea Nitrogen 17 mg/dL (9-20); Carbon Dioxide 17 mmol/L (22-32); Chloride 112 mmol/L (98-107); Estimated Glomerular Filt Rate 55 mL/min (>60); Globulin 4.8 g/dL (1.7-4.1); Glucose 162 mg/dL (80-110); HEMOLYSIS < 15 (0-50); Lipase 57 U/L (23-300); Magnesium 1.7 mg/dL (1.6-2.3); Potassium 3.3 mmol/L (3.4-5.1); Sodium 145 mmol/L (137-145); Total Protein 8.8 g/dL (6.3-8.2)
[2022-09-12 21:03] LABS: Influenza A - CEPHEID Flu A NEGATIVE (NEGATIVE); Influenza B - CEPHEID Flu B NEGATIVE (NEGATIVE); Respiratory Syncytial Virus Negative (Negative)
[2022-09-12 21:16] LABS: COVID-19 CEPHEID 4-PLEX PCR Negative (Negative)
--- NOTE | 2022-09-12 22:31 | DI.CT.S_ITS ---
PROCEDURE: CT CHEST ABD PEL W CON INDICATIONS: persistent vomiting, history liver transplant TECHNIQUE: After the administration of intravenous contrast, axial sections acquired from the supraclavicular neck to the pubic symphysis. Coronal and sagittal reformats were performed. For radiation dose reduction, the following was used: automated exposure control, adjustment of mA and/or kV according to patient size. COMPARISON: [facility], CT, ABDOMEN/PELVIS WITH CONTRAST, 02/08/2017, 11:01. FINDINGS: Image quality: Excellent. CHEST: Lower Neck: No lymphadenopathy by size criteria. Thyroid: Visualized thyroid demonstrates no discrete nodules. Axillae: No lymphadenopathy by size criteria. Chest Wall: Unremarkable. Lungs and Airways: There is mild dependent atelectasis and scarring in the lungs. No acute consolidation. No suspicious pulmonary nodules. The trachea and central airways are patent. Pleura: No pneumothorax or pleural effusions. Heart: Heart size is normal. No pericardial effusion. Thoracic Vessels: The aorta appears normal in size. There is mild enlargement of the pulmonary arteries, with the main pulmonary artery measuring up to 3.1 cm suggestive of pulmonary arterial hypertension. Mediastinum and Britt: No lymphadenopathy by size criteria. Esophagus: No wall thickening. There is a small hiatal hernia. ABDOMEN: Liver: Postsurgical changes are demonstrated consistent with prior liver transplant. Multiple, at least 10, ill-defined hypoattenuating mass lesions are demonstrated throughout the right and left lobes. The majority of the lesions demonstrate a target appearance. A circulation sales representative index mass lesion inferiorly in the right hepatic lobe on series 2, image 59 measures up to 3.5 x 3.4 cm in transverse dimension. The portal veins appear patent. The hepatic arteries are not well evaluated on the current phase of imaging. The hepatic veins are also not well opacified on the current phase of imaging. Gallbladder: Within normal limits without calcified gallstones. Biliary ducts: No biliary ductal dilatation. Pancreas: Unremarkable. Spleen: Normal in size. Adrenal Glands: No adrenal nodules. Kidneys and Ureters: No hydronephrosis. Stomach and Bowel: Stomach, small bowel loops, and colon are normal in caliber and wall thickness. Peritoneum: No abnormal intraperitoneal fluid. No free air. Ventral Wall: No hernia. Abdominal Nodes: No retroperitoneal or mesenteric adenopathy by size criteria. Vessels: Aorta and inferior vena cava are normal in size. There is enlargement of the splenic vein with multiple splenic varices and a splenorenal shunt. Findings are consistent with portal hypertension. PELVIS: Pelvic Organs: Unremarkable. Bladder: Unremarkable. Pelvic Nodes: No enlarged lymph nodes. Miscellaneous: No inguinal hernias are seen. Bones: Visualized osseous structures demonstrate no suspicious focal lesions. IMPRESSION: 1. Multiple hypoattenuating target mass lesions demonstrated throughout the liver. The findings are suggestive of a neoplastic process, likely metastatic disease. The differential includes multifocal hepatocellular carcinoma or abscess collections although these are considered less likely. 2. Enlargement of the splenic vein as well as prominent splenorenal varices and a splenorenal shunt consistent sequelae of portal hypertension. 3. Postsurgical changes consistent with prior liver transplant redemonstrated. Dictated by: Blair Godwin M.D. on 09/13/2022 at 0:07 Approved by: Blair Godwin M.D. on 09/13/2022 at 0:19
[2022-09-12] MEDS: HYDRALAZINE 20 MG/ML VIAL 10 MG IV (22:36)
[2022-09-12] MEDS: PANTOPRAZOLE 40 MG VIAL IV (22:36)
[2022-09-13] VITALS (8 sets, daily range): BP systolic 154–180; BP diastolic 70–93; PULSE 62–73; RESP 16; O2SAT 96–99
[2022-09-13] MEDS: ONDANSETRON 4 MG ODT PREPACK 1 BOTTLE MISC (02:44)
== END 2022-09-13 02:57 | disposition home or self-care (01) ==
PROVIDERS: Emergency Provider Emergency Medicine
DX: R11.10 Vomiting, unspecified (principal); Z20.822 Contact with and (suspected) exposure to COVID-19
CPT/HCPCS: 0241U; 36415; 71260; 74177; 80053; 83690; 83735; 85025; 87040; 96361; 96374; 96375; 99284; C9113; J0360; J2405; Q9967

== ENCOUNTER → 2022-10-31 11:43 | Outpatient (CLI) | payer MEDICARE, SELFPAY ==
[2022-10-31 13:20] LABS: Add Manual Diff / Slide Review NO; Basophils Absolute Auto 0 /uL (0-100); Basophils Percent Auto 0.8 % (0-2); Eosinophils Absolute Auto 300 /uL (0-450); Eosinophils Percent Auto 5.4 % (2-4); Hematocrit 34.7 % (41-53); Hemoglobin 12.1 g/dL (13.5-17.5); Lymphocytes Absolute Auto 1500 /uL (1100-4500); Lymphocytes Percent Auto 25.9 % (25-40); Mean Corpuscular HGB Conc 34.8 % (30-36); Mean Corpuscular Hemoglobin 30.2 PG (26-34); Mean Corpuscular Volume 86.9 fL (80-100); Monocytes Absolute Auto 500 /uL (0-900); Monocytes Percent Auto 9.2 % (3-14); Neutrophils Absolute Auto 3400 /uL (1500-7000); Neutrophils Percent Auto 58.7 % (50-75); Platelet Count 167 X10^3/uL (150-400); Red Cell Distribution Width 17.8 % (11.6-14.8); White Blood Cell Count 5.9 X10^3/uL (4.5-11.0)
[2022-10-31 13:43] LABS: INR 1.4 (0.9-1.3); Prothrombin Time 15.6 SECONDS (10.1-12.7)
[2022-10-31 13:54] LABS: Alanine Aminotransferase 19 IU/L (<50); Albumin Globulin Ratio 0.9 (1.0-2.8); Alkaline Phosphatase 84 U/L (38-126); Aspartate Aminotransferase 26 IU/L (17-59); BUN Creatinine Ratio 10.4 (6-22); Bilirubin Total 1.9 mg/dL (0.2-1.3); Bilirubin Unconjugated 1.4 mg/dL (0.0-1.1); Blood Urea Nitrogen 14 mg/dL (9-20); Calcium 8.4 mg/dL (8.4-10.2); Carbon Dioxide 23 mmol/L (22-32); Chloride 111 mmol/L (98-107); Estimated Glomerular Filt Rate 56 mL/min (>60); Gamma Glutamyl Transpeptidase 29 U/L (15-73); Globulin 3.4 g/dL (1.7-4.1); Glucose 133 mg/dL (80-110); HEMOLYSIS < 15 (0-50); Magnesium 1.8 mg/dL (1.6-2.3); Phosphorous 2.7 mg/dL (2.3-3.7); Sodium 142 mmol/L (137-145); Total Protein 6.4 g/dL (6.3-8.2)
[2022-11-01 15:07] LABS: Tacrolimus 3.7 ng/mL (2.0-20.0)
== END ==
PROVIDERS: Referring Provider Internal Medicine Gastroenterology; Visit Provider Internal Medicine Gastroenterology
DX: Z94.4 Liver transplant status (principal); Z79.899 Other long term (current) drug therapy; Z48.298 Encounter for aftercare following other organ transplant
CPT/HCPCS: 36415; 80048; 80076; 80197; 82977; 83735; 84100; 85025; 85610

== ENCOUNTER → 2023-02-08 12:17 | Outpatient (CLI) | payer MEDICARE, SELFPAY ==
[2023-02-08 13:19] LABS: INR 1.3 (0.9-1.3); Prothrombin Time 15.4 SECONDS (10.1-12.7)
[2023-02-08 13:25] LABS: Add Manual Diff / Slide Review NO; Basophils Absolute Auto 100 /uL (0-100); Basophils Percent Auto 0.9 % (0-2); Eosinophils Absolute Auto 300 /uL (0-450); Eosinophils Percent Auto 4.5 % (2-4); Hematocrit 33.5 % (41-53); Hemoglobin 11.9 g/dL (13.5-17.5); Lymphocytes Absolute Auto 1700 /uL (1100-4500); Lymphocytes Percent Auto 23.4 % (25-40); Mean Corpuscular HGB Conc 35.7 % (30-36); Mean Corpuscular Hemoglobin 31.7 PG (26-34); Mean Corpuscular Volume 88.9 fL (80-100); Monocytes Absolute Auto 800 /uL (0-900); Monocytes Percent Auto 11.1 % (3-14); Neutrophils Absolute Auto 4300 /uL (1500-7000); Neutrophils Percent Auto 60.1 % (50-75); Platelet Count 203 X10^3/uL (150-400); Red Blood Cell Count 3.77 X10^6/uL (4.5-5.9); White Blood Cell Count 7.1 X10^3/uL (4.5-11.0)
[2023-02-08 13:54] LABS: Alanine Aminotransferase 17 IU/L (<50); Albumin 3.2 g/dL (3.5-5.0); Albumin Globulin Ratio 0.9 (1.0-2.8); Alkaline Phosphatase 106 U/L (38-126); Aspartate Aminotransferase 24 IU/L (17-59); BUN Creatinine Ratio 8.5 (6-22); Bilirubin Total 1.8 mg/dL (0.2-1.3); Bilirubin Unconjugated 1.5 mg/dL (0.0-1.1); Blood Urea Nitrogen 12 mg/dL (9-20); Calcium 8.2 mg/dL (8.4-10.2); Carbon Dioxide 21 mmol/L (22-32); Chloride 111 mmol/L (98-107); Estimated Glomerular Filt Rate 53 mL/min (>60); Gamma Glutamyl Transpeptidase 33 U/L (15-73); Globulin 3.5 g/dL (1.7-4.1); Glucose 114 mg/dL (80-110); HEMOLYSIS < 15 (0-50); Magnesium 1.8 mg/dL (1.6-2.3); Phosphorous 2.5 mg/dL (2.3-3.7); Potassium 3.6 mmol/L (3.4-5.1); Sodium 139 mmol/L (137-145); Total Protein 6.7 g/dL (6.3-8.2)
== END ==
PROVIDERS: Referring Provider Internal Medicine Gastroenterology; Visit Provider Internal Medicine Gastroenterology
DX: Z94.4 Liver transplant status (principal); Z79.899 Other long term (current) drug therapy; Z48.298 Encounter for aftercare following other organ transplant
CPT/HCPCS: 36415; 80048; 80076; 80197; 82977; 83735; 84100; 85025; 85610

== ENCOUNTER → 2023-02-10 13:21 | Outpatient (CLI) | payer MEDICARE, SELFPAY ==
[2023-02-10 15:24] LABS: Creatinine, Serum (CRCL) 1.41 mg/dL (0.66-1.25)
[2023-02-10 15:47] LABS: Collection Time Urine 24 Hours; Creatinine Clearance Urine 62.4 mL/MIN; Creatinine Urine Random 126.6 mg/dL; Patient Height Urine 66 inches; Patient Weight Urine 210 lbs; Total Volume Urine 1000 mL
[2023-02-11 10:39] LABS: Creatinine Urine Random 125.5 mg/dL; Protein (Total) Urine Random 10 mg/dL (0-12); Protein Creatinine Ratio Urine 0.07 GRAM/24H
== END ==
PROVIDERS: Referring Provider Internal Medicine Gastroenterology; Visit Provider Internal Medicine Gastroenterology
DX: Z94.4 Liver transplant status (principal); Z48.298 Encounter for aftercare following other organ transplant; Z79.899 Other long term (current) drug therapy
CPT/HCPCS: 36415; 82570; 82575; 84156

== ENCOUNTER → 2023-03-17 | Outpatient (CLI) | payer MEDICARE, SELFPAY | LOC: US 11-27 09:24 | PROVIDERS: Referring Provider Internal Medicine Gastroenterology; Visit Provider Internal Medicine Gastroenterology | DX: Z94.4 Liver transplant status (principal); Z79.899 Other long term (current) drug therapy; Z48.298 Encounter for aftercare following other organ transplant ==

== ENCOUNTER → 2023-03-29 08:30 | Outpatient (CLI) | payer MEDICARE, SELFPAY ==
--- NOTE | 2023-03-29 | DI.US.S_ITS ---
PROCEDURE: US ABDOMEN COMPLETE INDICATIONS: Post Liver transplant/abd complete w/dopplers TECHNIQUE: Real-time scanning was performed of the abdominal and retroperitoneal organs, with image documentation. COMPARISON: [facility], CT, CT CHEST ABD PEL W CON, 09/12/2022, 22:44. [facility], US, ABDOMEN COMPLETE, 10/19/2010, 13:42. FINDINGS: Liver: Multiple solid hepatic mass lesions. Largest on the left measures 4.1 cm, and largest on the right measures 3.0 cm Gallbladder: Cholecystectomy Biliary ducts: Intrahepatic bile ducts are non-dilated. Extrahepatic bile duct caliber measures 3 mm. Normal is 6-7 mm or less in diameter, or 10 mm or less post-cholecystectomy. Pancreas: Visualized portions of the pancreas are sonographically normal. Spleen: Spleen is normal in size and homogeneous in echotexture. Kidneys: Kidneys are normal in size and echotexture. Right kidney measures 11.2 cm long; left kidney measures 11.7 cm long. No hydronephrosis or nephrolithiasis. No solid masses. 2.5 cm right renal cyst, simple Aorta: Nonvisualized Iliacs: Nonvisualized IVC: Nonvisualized Miscellaneous: No free abdominal fluid. IMPRESSION: Multifocal hepatic mass lesions, consistent with metastatic disease. Consider follow-up CT for direct comparison Approved by: Thaddeus Rivera M.D. on 03/29/2023 at 9:56
== END ==
PROVIDERS: Referring Provider Internal Medicine Gastroenterology; Visit Provider Internal Medicine Gastroenterology
DX: I81 Portal vein thrombosis (principal); K76.9 Liver disease, unspecified; Z48.298 Encounter for aftercare following other organ transplant; Z94.4 Liver transplant status; Z79.899 Other long term (current) drug therapy; Z90.49 Acquired absence of other specified parts of digestive tract
CPT/HCPCS: 76700; 93975

== ENCOUNTER → 2023-06-28 16:01 | Outpatient (CLI) | payer MEDICARE, SELFPAY ==
[2023-06-28 17:16] LABS: Add Manual Diff / Slide Review NO; Basophils Absolute Auto 100 /uL (0-100); Basophils Percent Auto 0.9 % (0-2); Eosinophils Absolute Auto 500 /uL (0-450); Eosinophils Percent Auto 5.2 % (2-4); Hemoglobin 12.4 g/dL (13.5-17.5); Lymphocytes Absolute Auto 2200 /uL (1100-4500); Lymphocytes Percent Auto 24.5 % (25-40); Mean Corpuscular HGB Conc 34.4 % (30-36); Mean Corpuscular Hemoglobin 29.7 PG (26-34); Mean Corpuscular Volume 86.3 fL (80-100); Monocytes Absolute Auto 900 /uL (0-900); Neutrophils Absolute Auto 5200 /uL (1500-7000); Neutrophils Percent Auto 59.4 % (50-75); Platelet Count 297 X10^3/uL (150-400); Red Blood Cell Count 4.17 X10^6/uL (4.5-5.9); Red Cell Distribution Width 15.6 % (11.6-14.8); White Blood Cell Count 8.8 X10^3/uL (4.5-11.0)
[2023-06-28 17:54] LABS: Alanine Aminotransferase 17 IU/L (<50); Albumin 3.6 g/dL (3.5-5.0); Albumin Globulin Ratio 0.9 (1.0-2.8); Alkaline Phosphatase 129 U/L (38-126); Aspartate Aminotransferase 24 IU/L (17-59); BUN Creatinine Ratio 8.6 (6-22); Bilirubin Total 1.5 mg/dL (0.2-1.3); Bilirubin Unconjugated 1.1 mg/dL (0.0-1.1); Blood Urea Nitrogen 13 mg/dL (9-20); Calcium 9.2 mg/dL (8.4-10.2); Carbon Dioxide 20 mmol/L (22-32); Chloride 110 mmol/L (98-107); Estimated Glomerular Filt Rate 49 mL/min (>60); Gamma Glutamyl Transpeptidase 59 U/L (15-73); Globulin 4.1 g/dL (1.7-4.1); Glucose 122 mg/dL (80-110); HEMOLYSIS < 15 (0-50); Magnesium 1.9 mg/dL (1.6-2.3); Phosphorous 3.6 mg/dL (2.3-3.7); Potassium 3.9 mmol/L (3.4-5.1); Sodium 140 mmol/L (137-145); Total Protein 7.7 g/dL (6.3-8.2)
[2023-06-28 21:01] LABS: INR 1.3 (0.9-1.3); Prothrombin Time 15.2 SECONDS (10.1-12.7)
[2023-06-29 16:36] LABS: Hepatitis B Surface Antigen NEGATIVE s/c (NEGATIVE)
[2023-07-01 08:09] LABS: Hepatitis B Virus DNA HBV DNA not detected IU/mL (.)
== END ==
PROVIDERS: Referring Provider Internal Medicine Gastroenterology; Visit Provider Internal Medicine Gastroenterology
DX: Z94.4 Liver transplant status (principal); Z79.899 Other long term (current) drug therapy; Z48.298 Encounter for aftercare following other organ transplant
CPT/HCPCS: 36415; 80053; 80076; 80197; 82977; 83735; 84100; 85025; 85610; 87340; 87517

== ENCOUNTER → 2024-01-10 11:46 | Outpatient (CLI) | payer MEDICARE, SELFPAY ==
[2024-01-10 12:45] LABS: Add Manual Diff / Slide Review NO; Basophils Absolute Auto 100 /uL (0-100); Basophils Percent Auto 0.9 % (0-2); Eosinophils Absolute Auto 400 /uL (0-450); Eosinophils Percent Auto 6.6 % (2-4); Hematocrit 34.2 % (41-53); Hemoglobin 12.1 g/dL (13.5-17.5); Lymphocytes Absolute Auto 1800 /uL (1100-4500); Lymphocytes Percent Auto 27.9 % (25-40); Mean Corpuscular HGB Conc 35.5 % (30-36); Mean Corpuscular Hemoglobin 32.7 PG (26-34); Mean Corpuscular Volume 92.2 fL (80-100); Monocytes Absolute Auto 700 /uL (0-900); Neutrophils Absolute Auto 3600 /uL (1500-7000); Neutrophils Percent Auto 54.6 % (50-75); Platelet Count 180 X10^3/uL (150-400); Red Blood Cell Count 3.71 X10^6/uL (4.5-5.9); Red Cell Distribution Width 16.5 % (11.6-14.8); White Blood Cell Count 6.5 X10^3/uL (4.5-11.0)
[2024-01-10 12:56] LABS: INR 1.3 (0.9-1.3)
[2024-01-10 13:13] LABS: Alanine Aminotransferase 17 IU/L (<50); Albumin Globulin Ratio 0.9 (1.0-2.8); Alkaline Phosphatase 87 U/L (38-126); Aspartate Aminotransferase 27 IU/L (17-59); BUN Creatinine Ratio 8.9 (6-22); Bilirubin Total 2.1 mg/dL (0.2-1.3); Bilirubin Unconjugated 1.9 mg/dL (0.0-1.1); Blood Urea Nitrogen 15 mg/dL (9-20); Calcium 8.7 mg/dL (8.4-10.2); Carbon Dioxide 22 mmol/L (22-32); Chloride 115 mmol/L (98-107); Estimated Glomerular Filt Rate 43 mL/min (>60); Gamma Glutamyl Transpeptidase 31 U/L (15-73); Globulin 3.4 g/dL (1.7-4.1); Glucose 117 mg/dL (80-110); HEMOLYSIS < 15 (0-50); Phosphorous 2.8 mg/dL (2.3-3.7); Potassium 3.7 mmol/L (3.4-5.1); Sodium 142 mmol/L (137-145); Total Protein 6.4 g/dL (6.3-8.2)
[2024-01-11 18:03] LABS: Hepatitis B Surface Antigen NEGATIVE s/c (NEGATIVE)
[2024-01-13 06:36] LABS: Hepatitis B Virus DNA HBV DNA not detected IU/mL (.)
[2024-01-14 15:38] LABS: Tacrolimus 5.1
== END ==
PROVIDERS: Referring Provider Internal Medicine Gastroenterology; Visit Provider Internal Medicine Gastroenterology
DX: Z94.4 Liver transplant status (principal); Z79.899 Other long term (current) drug therapy; Z48.298 Encounter for aftercare following other organ transplant
CPT/HCPCS: 36415; 80048; 80076; 80197; 82977; 83735; 84100; 85025; 85610; 87340; 87517

== ENCOUNTER 2024-09-22 14:50 | Emergency (ER) | payer MEDICARE, MEDICAID, OTHER, SELFPAY ==
[2024-09-22] VITALS (14 sets, daily range): BP systolic 178–199; BP diastolic 84–96; PULSE 72–89; RESP 16–27; TEMP 36.9; O2SAT 96–99; BMI 29.0
--- NOTE | 2024-09-22 15:15 | DI.RAD.S_ITS ---
PROCEDURE: XR CHEST 1V INDICATIONS: altered mental status TECHNIQUE: One view of the chest was acquired. COMPARISON: None. FINDINGS: Surgical changes and devices: None. Lungs and pleura: Lungs are clear. No pleural effusions or pneumothorax. Mediastinum: Mediastinal contours appear normal. Heart size is normal. Bones and chest wall: No suspicious bony lesions. Overlying soft tissues appear unremarkable. IMPRESSION: No acute cardiopulmonary abnormality is seen. Dictated by: Cheryl Liang M.D. on 09/22/2024 at 14:57 Approved by: Cheryl Liang M.D. on 09/22/2024 at 14:58
--- NOTE | 2024-09-22 15:33 | EKG_ITS ---
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
[2024-09-22 15:37] LABS: Add Manual Diff / Slide Review NO; Basophils Absolute Auto 100 /uL (0-100); Basophils Percent Auto 1.2 % (0-2); Eosinophils Absolute Auto 300 /uL (0-450); Eosinophils Percent Auto 4.1 % (2-4); Hematocrit 34.9 % (41-53); Hemoglobin 12.2 g/dL (13.5-17.5); Lymphocytes Absolute Auto 1000 /uL (1100-4500); Lymphocytes Percent Auto 16.7 % (25-40); Mean Corpuscular HGB Conc 35.1 % (30-36); Mean Corpuscular Hemoglobin 32.1 PG (26-34); Mean Corpuscular Volume 91.4 fL (80-100); Monocytes Absolute Auto 500 /uL (0-900); Monocytes Percent Auto 8.3 % (3-14); Neutrophils Absolute Auto 4400 /uL (1500-7000); Neutrophils Percent Auto 69.7 % (50-75); Platelet Count 202 X10^3/uL (150-400); Red Blood Cell Count 3.81 X10^6/uL (4.5-5.9); Red Cell Distribution Width 16.9 % (11.6-14.8); White Blood Cell Count 6.3 X10^3/uL (4.5-11.0)
[2024-09-22 15:46] LABS: Ammonia (NH3) 82 umol/L (9-30)
[2024-09-22 15:47] LABS: Alanine Aminotransferase 21 IU/L (<50); Albumin 3.4 g/dL (3.5-5.0); Albumin Globulin Ratio 0.8 (1.0-2.8); Alkaline Phosphatase 81 U/L (38-126); Aspartate Aminotransferase 30 IU/L (17-59); BUN Creatinine Ratio 7.4 (6-22); Bilirubin Total 2.8 mg/dL (0.2-1.3); Blood Urea Nitrogen 15 mg/dL (9-20); Calcium 8.9 mg/dL (8.4-10.2); Carbon Dioxide 17 mmol/L (22-32); Chloride 112 mmol/L (98-107); Estimated Glomerular Filt Rate 34 mL/min (>60); Globulin 4.5 g/dL (1.7-4.1); Glucose 202 mg/dL (80-110); HEMOLYSIS < 15 (0-50); Potassium 3.5 mmol/L (3.4-5.1); Sodium 137 mmol/L (137-145); Total Protein 7.9 g/dL (6.3-8.2)
--- NOTE | 2024-09-22 16:05 | PC.NURSE ---
Liver transplant 15 years ago, increasing confusion over the past couple of days and loss of appetite, this RN notes yellow sclera. Patient was alert and oriented to person place and time. concerns for increased ammonia levels
[2024-09-22 16:18] LABS: Thyroid Stimulating Hormone 0.824 uIU/mL (0.47-4.68)
[2024-09-22] MEDS: SODIUM CHLORIDE 0.9% 1,000 ML 1000 ML IV (16:43)
[2024-09-22 16:55] LABS: Ur Creatinine Normal (Normal); Ur Specific Gravity Normal (Normal); Urine Amphetamines Negative (Negative); Urine Barbiturates Negative (Negative); Urine Benzodiazepines Negative (Negative); Urine Cocaine Negative (Negative); Urine MDMA Negative (Negative); Urine Methadone Negative (Negative); Urine Methamphetamines Negative (Negative); Urine Opiates Negative (Negative); Urine Oxycodone Negative (Negative); Urine Phencyclidine Negative (Negative); Urine THC Positive (Negative); Urine Tricyclic Antidepressant Negative (Negative); Urine pH Normal (Normal)
[2024-09-22 16:56] LABS: Ictotest Urine Negative (Negative)
[2024-09-22 17:02] LABS: Bacteria Urine None Seen; Hyaline Casts Urine 1-5/LPF; RBC Urine None Seen (0-5/HPF); Squamous Epithelial Cell Urine None Seen (0-5/HPF); Urine Volume 10mL (spun); WBC Urine 0-1/HPF (0-5/HPF)
[2024-09-22 17:03] LABS: Culture Indicated Urine Cult Not Indicated
[2024-09-22 17:05] LABS: Lactate (Lactic Acid) 1.5 mmol/L (0.7-2.1)
--- NOTE | 2024-09-22 17:15 | ED.AMS ---
HPI - Altered Mental Status <Melia Epstein DO - Last Filed: 09/23/24 07:01> General Chief Complaint: Altered Mental Status Stated Complaint: Abn Labs, AMS Time Seen by Provider: 09/22/24 15:24 Source: patient and family Mode of arrival: Family Vehicle History of Present Illness HPI narrative: Patient is a 74-year-old male history of alcoholic cirrhosis status post liver transplant in 2009 currently taking tacrolimus currently presenting with increased confusion. He has missed 2 doses of tacrolimus. He thought he was drinking coffee when he was drinking Dima-Aid. Patient is awake alert mildly confused not complaining of any sort of pain. is no longer at bedside. There was concern that patient's ammonia level was elevated. It does not appear that he takes lactulose daily but patient reports he has taken it in the past. Unclear if this was pre or post transplant. Related Data Home Medications Medication Instructions Recorded Confirmed tacrolimus 1 mg capsule, 1 mg PO BID 12/20/18 12/20/18 immediate-release Previous Rx's Medication Instructions Recorded ondansetron 4 mg disintegrating 4 mg PO BID-TID PRN nausea and 12/20/18 tablet vomiting #12 tabs betamethasone dipropionate 0.05 % 1 applic topical TIDP PRN rash #15 03/17/21 topical cream grams ondansetron 4 mg disintegrating 4 mg PO TID-QID PRN nausea and 09/13/22 tablet vomiting #10 tabs lactulose 20 gram oral packet 20 g PO BID #30 ea 09/22/24 Allergies Allergy/AdvReac Type Severity Reaction Status Date / Time No Known Drug Allergies Allergy Verified 08/16/18 10:23 Patient History <Melia Epstein DO - Last Filed: 09/23/24 07:01> Medical History (Updated 09/22/24 @ 21:06 by Amando Estrada DO) Chronic renal failure, stage 2 (mild) Cancer of prostate Sleep apnea Memory problem Hepatitis B 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: [employer] leisure activities: art and other (Anything by water.) Smoking Status: Former smoker Tobacco: How many years used: 20 Smokeless tobacco user: other (Cigarettes) quit status: quit date established (~2000) second hand exposure: Yes (Off and on, nothing prolonged.) alcohol intake: never substance use type: does not use Smoking Status: Former smoker Exam <Melia Epstein DO - Last Filed: 09/23/24 07:01> Initial Vital Signs Initial Vital Signs: Vital Signs Temperature 98.4 F 09/22/24 14:55 Pulse Rate 80 09/22/24 14:55 Respiratory Rate 16 09/22/24 14:55 Blood Pressure 197/93 H 09/22/24 14:55 Pulse Oximetry 99 09/22/24 14:55 Oxygen Delivery Method Room Air 09/22/24 14:55 GENERAL: Alert pleasant 74-year-old male and in no acute distress. HEENT: Head atraumatic,EOMI, pupils reactive, face symmetric, moist mucous membranes CARDIOVASCULAR: Regular rate and rhythm without murmurs, rubs or gallops. RESPIRATORY: Breath sounds equal bilaterally, no wheezes rales or rhonchi. ABDOMEN: Soft, nontender. Normoactive bowel sounds all 4 quadrants. No guarding or rebound. EXTREMITIES: Normal range of motion, no clubbing or edema. Neurovascularly intact NEUROLOGICAL: Alert and oriented x4.Normal gait and speech. Cranial nerves II through XII grossly intact. SKIN: Warm, dry, no laceration, no petechiae, no rashes or lesions. <Amando Estrada DO - Last Filed: 09/22/24 21:12> Initial Vital Signs Initial Vital Signs: Vital Signs Temperature 98.4 F 09/22/24 14:55 Pulse Rate 80 09/22/24 14:55 Respiratory Rate 16 09/22/24 14:55 Blood Pressure 197/93 H 09/22/24 14:55 Pulse Oximetry 99 09/22/24 14:55 Oxygen Delivery Method Room Air 09/22/24 14:55 Course <Melia Epstein DO - Last Filed: 09/23/24 07:01> Orders Ordered: Discontinued Medications Sodium Chloride (Normal Saline 0.9%) 1,000 mls @ 1,000 mls/hr IV BOLUS ONE Stop: 09/22/24 17:26 Last Infusion: 09/22/24 18:01 Dose: Infused Documented By: Admin: 09/22/24 16:43 Dose: 1,000 mls/hr Documented By: OLIVIA Lactulose (Lactulose 20 Gm/30 Ml Solution) 20 gm PO NOW ONE Stop: 09/22/24 17:56 Last Admin: 09/22/24 18:10 Dose: 20 gm Documented By: OLIVIA Vital Signs Vital signs: Vital Signs - 8 hr 09/22/24 14:55 09/22/24 15:34 09/22/24 16:00 Temperature 98.4 F Pulse Rate 80 84 79 Respiratory Rate 16 22 Blood Pressure 197/93 H Pulse Oximetry 99 96 99 Oxygen Delivery Method Room Air 09/22/24 16:13 09/22/24 16:13 09/22/24 16:30 Temperature Pulse Rate 77 75 Respiratory Rate 22 23 Blood Pressure 183/87 H Pulse Oximetry 96 98 Oxygen Delivery Method 09/22/24 16:30 09/22/24 16:49 09/22/24 16:49 Temperature Pulse Rate 75 Respiratory Rate 19 Blood Pressure 184/87 H 195/88 H Pulse Oximetry 97 Oxygen Delivery Method 09/22/24 17:00 09/22/24 17:00 09/22/24 17:30 Temperature Pulse Rate 72 Respiratory Rate 21 Blood Pressure 179/84 H 199/88 H Pulse Oximetry 96 Oxygen Delivery Method 09/22/24 17:30 09/22/24 18:00 09/22/24 18:00 Temperature Pulse Rate 79 74 Respiratory Rate Blood Pressure 189/84 H Pulse Oximetry 98 98 Oxygen Delivery Method 09/22/24 18:30 09/22/24 18:30 09/22/24 19:00 Temperature Pulse Rate 79 Respiratory Rate 24 Blood Pressure 196/96 H 178/87 H Pulse Oximetry Oxygen Delivery Method 09/22/24 19:00 Temperature Pulse Rate 79 Respiratory Rate 24 Blood Pressure Pulse Oximetry Oxygen Delivery Method <Amando Estrada DO - Last Filed: 09/22/24 21:12> Orders Ordered: Discontinued Medications Sodium Chloride (Normal Saline 0.9%) 1,000 mls @ 1,000 mls/hr IV BOLUS ONE Stop: 09/22/24 17:26 Last Infusion: 09/22/24 18:01 Dose: Infused Documented By: Admin: 09/22/24 16:43 Dose: 1,000 mls/hr Documented By: OLIVIA Lactulose (Lactulose 20 Gm/30 Ml Solution) 20 gm PO NOW ONE Stop: 09/22/24 17:56 Last Admin: 09/22/24 18:10 Dose: 20 gm Documented By: OLIVIA Vital Signs Vital signs: Vital Signs - 8 hr 09/22/24 14:55 09/22/24 15:34 09/22/24 16:00 Temperature 98.4 F Pulse Rate 80 84 79 Respiratory Rate 16 22 Blood Pressure 197/93 H Pulse Oximetry 99 96 99 Oxygen Delivery Method Room Air 09/22/24 16:13 09/22/24 16:13 09/22/24 16:30 Temperature Pulse Rate 77 75 Respiratory Rate 22 23 Blood Pressure 183/87 H Pulse Oximetry 96 98 Oxygen Delivery Method 09/22/24 16:30 09/22/24 16:49 09/22/24 16:49 Temperature Pulse Rate 75 Respiratory Rate 19 Blood Pressure 184/87 H 195/88 H Pulse Oximetry 97 Oxygen Delivery Method 09/22/24 17:00 09/22/24 17:00 09/22/24 17:30 Temperature Pulse Rate 72 Respiratory Rate 21 Blood Pressure 179/84 H 199/88 H Pulse Oximetry 96 Oxygen Delivery Method 09/22/24 17:30 09/22/24 18:00 09/22/24 18:00 Temperature Pulse Rate 79 74 Respiratory Rate Blood Pressure 189/84 H Pulse Oximetry 98 98 Oxygen Delivery Method 09/22/24 18:30 09/22/24 18:30 09/22/24 19:00 Temperature Pulse Rate 79 Respiratory Rate 24 Blood Pressure 196/96 H 178/87 H Pulse Oximetry Oxygen Delivery Method 09/22/24 19:00 Temperature Pulse Rate 79 Respiratory Rate 24 Blood Pressure Pulse Oximetry Oxygen Delivery Method MDM - Altered Mental Status <Melia Epstein DO - Last Filed: 09/23/24 07:01> Lab Data 09/22/24 15:27 09/22/24 15:27 Labs: Lab Results 09/22/24 09/22/24 09/22/24 Range/Units 15:27 15:50 16:45 WBC 6.3 (4.5-11.0) X10^3/uL RBC 3.81 L (4.5-5.9) X10^6/uL Hgb 12.2 L (13.5-17.5) g/dL Hct 34.9 L (41-53) % MCV 91.4 (80-100) fL MCH 32.1 (26-34) PG MCHC 35.1 (30-36) % RDW 16.9 H (11.6-14.8) % Plt Count 202 (150-400) X10^3/uL Neut % (Auto) 69.7 (50-75) % Lymph % (Auto) 16.7 L (25-40) % [place] % (Auto) 8.3 (3-14) % Eos % (Auto) 4.1 H (2-4) % Baso % (Auto) 1.2 (0-2) % Neut # (Auto) 4400 (7088-6005) /uL Lymph # (Auto) 1000 L (9304-5198) /uL [place] # (Auto) 500 (0-900) /uL Eos # (Auto) 300 (0-450) /uL Baso # (Auto) 100 (0-100) /uL Sodium 137 (137-145) mmol/L Potassium 3.5 (3.4-5.1) mmol/L Chloride 112 H (98-107) mmol/L Carbon Dioxide 17 L (22-32) mmol/L BUN 15 (9-20) mg/dL Creatinine 2.03 H (0.66-1.25) mg/dL Estimated GFR 34 L (>60) mL/min BUN/Creatinine Ratio 7.4 (6-22) Glucose 202 H (80-110) mg/dL Lactate 1.5 (0.7-2.1) mmol/L Calcium 8.9 (8.4-10.2) mg/dL Total Bilirubin 2.8 H (0.2-1.3) mg/dL AST 30 (17-59) IU/L ALT 21 (<50) IU/L Alkaline Phosphatase 81 (38-126) U/L Ammonia 82 H (9-30) umol/L Total Protein 7.9 (6.3-8.2) g/dL Albumin 3.4 L (3.5-5.0) g/dL Globulin 4.5 H (1.7-4.1) g/dL Albumin/Globulin Ratio 0.8 L (1.0-2.8) TSH 0.824 (0.47-4.68) uIU/mL Ur Bilirubin Confirm Negative (Negative) Urine RBC None seen (0-5/HPF) Urine WBC 0-1/hpf (0-5/HPF) Ur Squamous Epith Cells None seen (0-5/HPF) Urine Bacteria None seen (None) Hyaline Casts 1-5/lpf (None) Ur Culture Indicated? Cult not indicated Vol Urine Centrifuged 10ml (spun) U Opiates 300ng/mL cut Negative (Negative) Ur Oxycodone Screen Negative (Negative) Urine Methadone Screen Negative (Negative) Ur Barbiturates Screen Negative (Negative) U Tricyclic Antidepress Negative (Negative) Ur Phencyclidine Scrn Negative (Negative) Ur Amphetamines Screen Negative (Negative) U Methamphetamines Scrn Negative (Negative) Ur MDMA Scrn (Ecstasy) Negative (Negative) U Benzodiazepines Scrn Negative (Negative) Urine Cocaine Screen Negative (Negative) U Marijuana (THC) Screen Positive H (Negative) Urine pH Normal (Normal) Urine Specific [place] Normal (Normal) Ur Creatinine Normal (Normal) Point of Care Testing Glucose POC 202 Urine Dip Bedside Urine Glucose Negative Bedside Urine Bilirubin + 1 Bedside Urine Ketone - Negative Urine Specific [place] 1.025 Bedside Urine Occult Blood - Negative Bedside Urine pH 6.0 Bedside Urine Protein + 30 Bedside Urine Urobilinogen +/- 1mg Bedside Urine Nitrite - Negative Bedside Urine Leukocytes +/- 15 Esterase ECG Data Attestation: I personally reviewed and interpreted this ECG as follows: Interpretation: Normal sinus rhythm rate 84 ID interval 174 QRS 106 QTC 404 no changes T-wave inversion noted in lead 3 and AVF MDM Narrative Medical decision making narrative: MDM CC: Confusion Complicating co-morbidities: Cirrhosis liver transplant 2009 Data collected from: Medical records reviewed: [facility] Differential considered: Hepatic encephalopathy, sepsis Exam documented above, pertinent findings include: Awake alert patient moving all extremities GCS 15 mildly confused overall poor historian but able to give some history Lab Test results independently reviewed as above. Pertinent findings: Ammonia 82 WBC 6.3 hemoglobin 12.2 hematocrit 34.9 platelets 202 Sodium 137 potassium 3.5 chloride 112 bicarb 17 BUN 15 creatinine 2.0 previously 1.6 in January 2024 Bilirubin 2.8 slowly been rising June 2023 is 1.12 January 2024 2.1 AST 30 ALT 21 alk-phos 81 Urinalysis negative Independently reviewed EKG as above no ischemia Imaging studies independently reviewed: Chest x-ray no acute cardiopulmonary process Consultations: 18:18 Dr. Sanches, hepatology at [facility] updated patient's symptoms test results has reviewed chart. Additionally did not think it was hepatic encephalopathy however after reviewing imaging there was evidence of some portal hypertension on his last ultrasound. Recommend that patient follow-up with [facility]. Also requested repeat right upper quadrant ultrasound. Recommend that trial of lactulose to see if it improves altered mental status. Also to rule out any other cause of altered mental status Treatments: Lactulose Re-evaluations: [ ] Discussion: Patient is 74-year-old male with status post liver transplant secondary to alcoholic cirrhosis presents today with confusion. now at bedside reports he has been confused for the last couple of days. He has no evidence of infection no leukocytosis. No fever chills. At this time suspect that it is hepatic encephalopathy. He is given 1 dose of lactulose. Awaiting ultrasound results. Patient signed out to Dr. Estrada <Amando Estrada, - Last Filed: 09/22/24 21:12> Lab Data Attestation: I reviewed the patient's lab results. Labs: Lab Results 09/22/24 09/22/24 09/22/24 Range/Units 15:27 15:50 16:45 WBC 6.3 (4.5-11.0) X10^3/uL RBC 3.81 L (4.5-5.9) X10^6/uL Hgb 12.2 L (13.5-17.5) g/dL Hct 34.9 L (41-53) % MCV 91.4 (80-100) fL MCH 32.1 (26-34) PG MCHC 35.1 (30-36) % RDW 16.9 H (11.6-14.8) % Plt Count 202 (150-400) X10^3/uL Neut % (Auto) 69.7 (50-75) % Lymph % (Auto) 16.7 L (25-40) % [place] % (Auto) 8.3 (3-14) % Eos % (Auto) 4.1 H (2-4) % Baso % (Auto) 1.2 (0-2) % Neut # (Auto) 4400 (7768-1499) /uL Lymph # (Auto) 1000 L (7280-4170) /uL [place] # (Auto) 500 (0-900) /uL Eos # (Auto) 300 (0-450) /uL Baso # (Auto) 100 (0-100) /uL Sodium 137 (137-145) mmol/L Potassium 3.5 (3.4-5.1) mmol/L Chloride 112 H (98-107) mmol/L Carbon Dioxide 17 L (22-32) mmol/L BUN 15 (9-20) mg/dL Creatinine 2.03 H (0.66-1.25) mg/dL Estimated GFR 34 L (>60) mL/min BUN/Creatinine Ratio 7.4 (6-22) Glucose 202 H (80-110) mg/dL Lactate 1.5 (0.7-2.1) mmol/L Calcium 8.9 (8.4-10.2) mg/dL Total Bilirubin 2.8 H (0.2-1.3) mg/dL AST 30 (17-59) IU/L ALT 21 (<50) IU/L Alkaline Phosphatase 81 (38-126) U/L Ammonia 82 H (9-30) umol/L Total Protein 7.9 (6.3-8.2) g/dL Albumin 3.4 L (3.5-5.0) g/dL Globulin 4.5 H (1.7-4.1) g/dL Albumin/Globulin Ratio 0.8 L (1.0-2.8) TSH 0.824 (0.47-4.68) uIU/mL Ur Bilirubin Confirm Negative (Negative) Urine RBC None seen (0-5/HPF) Urine WBC 0-1/hpf (0-5/HPF) Ur Squamous Epith Cells None seen (0-5/HPF) Urine Bacteria None seen (None) Hyaline Casts 1-5/lpf (None) Ur Culture Indicated? Cult not indicated Vol Urine Centrifuged 10ml (spun) U Opiates 300ng/mL cut Negative (Negative) Ur Oxycodone Screen Negative (Negative) Urine Methadone Screen Negative (Negative) Ur Barbiturates Screen Negative (Negative) U Tricyclic Antidepress Negative (Negative) Ur Phencyclidine Scrn Negative (Negative) Ur Amphetamines Screen Negative (Negative) U Methamphetamines Scrn Negative (Negative) Ur MDMA Scrn (Ecstasy) Negative (Negative) U Benzodiazepines Scrn Negative (Negative) Urine Cocaine Screen Negative (Negative) U Marijuana (THC) Screen Positive H (Negative) Urine pH Normal (Normal) Urine Specific [place] Normal (Normal) Ur Creatinine Normal (Normal) Point of Care Testing Glucose POC 202 Urine Dip Bedside Urine Glucose Negative Bedside Urine Bilirubin + 1 Bedside Urine Ketone - Negative Urine Specific [place] 1.025 Bedside Urine Occult Blood - Negative Bedside Urine pH 6.0 Bedside Urine Protein + 30 Bedside Urine Urobilinogen +/- 1mg Bedside Urine Nitrite - Negative Bedside Urine Leukocytes +/- 15 Esterase Imaging Data US - abdomen: Radiologist's Impression: PROCEDURE: US ABDOMEN LIMITED INDICATIONS: ruq liver transplant TECHNIQUE: Real-time focused scanning was performed of the abdomen, with image documentation. COMPARISON: [facility], US, US ABDOMEN COMPLETE, 03/29/2023, 9:05. [facility], US, US ABDOMEN DOPPLER COMPLETE, 07/11/2024, 8:13. Findings and impression: Limited examination due to patient factors (inability to hold breath, bowel gas). Patient was also not NPO. Heterogeneous liver is poorly visualized measuring about 13 cm. The hepatic artery is patent. The portal venous and hepatic venous structures and the IVC are not well seen due to bowel gas. Chest x-ray: Radiologist's Impression: PROCEDURE: XR CHEST 1V INDICATIONS: altered mental status TECHNIQUE: One view of the chest was acquired. COMPARISON: None. FINDINGS: Surgical changes and devices: None. Lungs and pleura: Lungs are clear. No pleural effusions or pneumothorax. Mediastinum: Mediastinal contours appear normal. Heart size is normal. Bones and chest wall: No suspicious bony lesions. Overlying soft tissues appear unremarkable. IMPRESSION: No acute cardiopulmonary abnormality is seen. MDM Narrative Medical decision making narrative: MDM CC: Confusion Complicating co-morbidities: Cirrhosis liver transplant 2009 Data collected from: Medical records reviewed: [facility] Differential considered: Hepatic encephalopathy, sepsis Exam documented above, pertinent findings include: Awake alert patient moving all extremities GCS 15 mildly confused overall poor historian but able to give some history Lab Test results independently reviewed as above. Pertinent findings: Ammonia 82 WBC 6.3 hemoglobin 12.2 hematocrit 34.9 platelets 202 Sodium 137 potassium 3.5 chloride 112 bicarb 17 BUN 15 creatinine 2.0 previously 1.6 in January 2024 Bilirubin 2.8 slowly been rising June 2023 is 1.12 January 2024 2.1 AST 30 ALT 21 alk-phos 81 Urinalysis negative Independently reviewed EKG as above no ischemia Imaging studies independently reviewed: Chest x-ray no acute cardiopulmonary process Consultations: 18:18 Dr. Sanches, hepatology at [facility] updated patient's symptoms test results has reviewed chart. Additionally did not think it was hepatic encephalopathy however after reviewing imaging there was evidence of some portal hypertension on his last ultrasound. Recommend that patient follow-up with [facility]. Also requested repeat right upper quadrant ultrasound. Recommend that trial of lactulose to see if it improves altered mental status. Also to rule out any other cause of altered mental status Treatments: Lactulose Re-evaluations: [ ] Discussion: Patient is 74-year-old male with status post liver transplant secondary to alcoholic cirrhosis presents today with confusion. now at bedside reports he has been confused for the last couple of days. He has no evidence of infection no leukocytosis. No fever chills. At this time suspect that it is hepatic encephalopathy. He is given 1 dose of lactulose. Awaiting ultrasound results. Patient signed out to Dr. Sean Estrada: Received turned over. Review patient's history and physical exam. Patient was afebrile. To have an elevated ammonia level. He was given lactulose. He has had a bowel movement. Right upper quadrant ultrasound is technically somewhat difficult. I discussed the case with Dr. Sanches once again of the [facility] who stated that if there was not an obvious abnormality that the patient could follow-up as an outpatient. Patient is alert and oriented. Is ambulatory. Is tolerating oral intake. Will discharge patient home with lactulose. He was instructed to contact the [facility] for follow-up. He was also given information to make contact with a primary doctor here in the local area. Patient in his expressed understanding agreement with plan. Discharge Plan Departure Patient Disposition: Home Clinical Impression: Encephalitis Instructions: DI for Altered Mental Status Activity Restrictions/Additional Instructions: You can contact [phone] during business hours Monday through Monday to help establish a primary doctor in the local area. A [facility] You can take 1 packet 2-4 times a day until you were having 2-3 soft stools a day you do need to contact the [facility] for a follow-up with a liver specialist. Return to the emergency department for new or worsening symptoms. Prescriptions: New lactulose 20 gram packet 20 g PO BID Qty: 30 3RF No Action betamethasone dipropionate 0.05 % cream 1 applic Topical TIDP PRN (Reason: rash) Qty: 15 0RF Rx Instructions: PT NOT SEEN SINCE 2018 HE WILL NEED TO BE SEEN BEFORE ANY FUTURE FILLS 03/17/21 ondansetron 4 mg tablet,disintegrating 4 mg PO TID-QID PRN (Reason: nausea and vomiting) Qty: 10 0RF tacrolimus 1 mg capsule 1 mg PO BID ondansetron 4 mg tablet,disintegrating 4 mg PO BID-TID PRN (Reason: nausea and vomiting) Qty: 12 0RF Referrals: Miscellaneous,Doctor, MD [Primary Care Provider] - Stand Alone Forms: Patient Portal/API/Survey
[2024-09-22] MEDS: LACTULOSE 20 GM/30 ML SOLUTION PO (18:10)
--- NOTE | 2024-09-22 18:26 | DI.US.S_ITS ---
PROCEDURE: US ABDOMEN LIMITED INDICATIONS: ruq liver transplant TECHNIQUE: Real-time focused scanning was performed of the abdomen, with image documentation. COMPARISON: [facility], US, US ABDOMEN COMPLETE, 03/29/2023, 9:05. [facility], US, US ABDOMEN DOPPLER COMPLETE, 07/11/2024, 8:13. Findings and impression: Limited examination due to patient factors (inability to hold breath, bowel gas). Patient was also not NPO. Heterogeneous liver is poorly visualized measuring about 13 cm. The hepatic artery is patent. The portal venous and hepatic venous structures and the IVC are not well seen due to bowel gas. Dictated by: Jeff Dawn M.D. on 09/22/2024 at 19:42 Approved by: Jeff Dawn M.D. on 09/22/2024 at 19:43
--- NOTE | 2024-09-22 21:27 | PC.NURSE ---
Pt life partner Margie states she will orange picking supervisor hat that was left behind. It is at nursing station in bag with label on it.
== END 2024-09-22 21:13 | disposition home or self-care (01) ==
PROVIDERS: Emergency Medicine; Emergency Provider Emergency Medicine
DX: G04.90 Encephalitis and encephalomyelitis, unspecified (principal); Z94.4 Liver transplant status
CPT/HCPCS: 36415; 71045; 76705; 80053; 80305; 81003; 81015; 82140; 82962; 83605; 84443; 85025; 93005; 96360; 96361; 99284

== ENCOUNTER → 2024-09-25 12:19 | Outpatient (CLI) | payer MEDICARE, MEDICAID, OTHER, SELFPAY ==
[2024-09-25 13:48] LABS: Add Manual Diff / Slide Review NO; Basophils Absolute Auto 100 /uL (0-100); Basophils Percent Auto 1.1 % (0-2); Eosinophils Absolute Auto 500 /uL (0-450); Eosinophils Percent Auto 8.7 % (2-4); Hematocrit 34.9 % (41-53); Hemoglobin 12.1 g/dL (13.5-17.5); Lymphocytes Absolute Auto 1300 /uL (1100-4500); Lymphocytes Percent Auto 22.1 % (25-40); Mean Corpuscular HGB Conc 34.7 % (30-36); Mean Corpuscular Hemoglobin 32.2 PG (26-34); Mean Corpuscular Volume 92.7 fL (80-100); Monocytes Absolute Auto 700 /uL (0-900); Monocytes Percent Auto 11.8 % (3-14); Neutrophils Absolute Auto 3300 /uL (1500-7000); Neutrophils Percent Auto 56.3 % (50-75); Platelet Count 196 X10^3/uL (150-400); Red Blood Cell Count 3.76 X10^6/uL (4.5-5.9); Red Cell Distribution Width 17.2 % (11.6-14.8); White Blood Cell Count 5.9 X10^3/uL (4.5-11.0)
[2024-09-25 14:02] LABS: INR 1.4 (0.9-1.3); Prothrombin Time 15.9 SECONDS (9.4-12.5)
[2024-09-25 14:07] LABS: Alanine Aminotransferase 19 IU/L (<50); Albumin 3.3 g/dL (3.5-5.0); Albumin Globulin Ratio 0.8 (1.0-2.8); Alkaline Phosphatase 80 U/L (38-126); Aspartate Aminotransferase 30 IU/L (17-59); BUN Creatinine Ratio 6.2 (6-22); Bilirubin Total 1.8 mg/dL (0.2-1.3); Bilirubin Unconjugated 1.4 mg/dL (0.0-1.1); Blood Urea Nitrogen 12 mg/dL (9-20); Calcium 8.8 mg/dL (8.4-10.2); Carbon Dioxide 20 mmol/L (22-32); Chloride 113 mmol/L (98-107); Estimated Glomerular Filt Rate 35 mL/min (>60); Gamma Glutamyl Transpeptidase 24 U/L (15-73); Glucose 131 mg/dL (80-110); HEMOLYSIS < 15 (0-50); Magnesium 1.6 mg/dL (1.6-2.3); Potassium 3.4 mmol/L (3.4-5.1); Sodium 140 mmol/L (137-145); Total Protein 7.3 g/dL (6.3-8.2)
== END ==
LOC: LAB 12:21
PROVIDERS: Referring Provider Internal Medicine Gastroenterology; Visit Provider Internal Medicine Gastroenterology
DX: Z94.4 Liver transplant status (principal); Z79.899 Other long term (current) drug therapy; Z48.298 Encounter for aftercare following other organ transplant
CPT/HCPCS: 36415; 80048; 80076; 80197; 82977; 83735; 84100; 85025; 85610

== ENCOUNTER 2024-12-02 15:26 | Emergency (ER) | payer MEDICARE, OTHER, SELFPAY ==
[2024-12-02 15:32] VITALS: BP 203/99; PULSE 89; RESP 18; TEMP 36.9; O2SAT 100; BMI 33.9
[2024-12-02 16:11] LABS: Add Manual Diff / Slide Review NO; Basophils Absolute Auto 100 /uL (0-100); Basophils Percent Auto 1.5 % (0-2); Eosinophils Absolute Auto 400 /uL (0-450); Eosinophils Percent Auto 7.4 % (2-4); Hematocrit 33.4 % (41-53); Hemoglobin 11.7 g/dL (13.5-17.5); Lymphocytes Absolute Auto 1200 /uL (1100-4500); Lymphocytes Percent Auto 22.5 % (25-40); Mean Corpuscular Hemoglobin 32.7 PG (26-34); Mean Corpuscular Volume 93.2 fL (80-100); Monocytes Absolute Auto 600 /uL (0-900); Monocytes Percent Auto 10.6 % (3-14); Neutrophils Absolute Auto 3100 /uL (1500-7000); Platelet Count 172 X10^3/uL (150-400); Red Blood Cell Count 3.59 X10^6/uL (4.5-5.9); Red Cell Distribution Width 17.3 % (11.6-14.8); White Blood Cell Count 5.4 X10^3/uL (4.5-11.0)
[2024-12-02 16:28] LABS: Ammonia (NH3) 131 umol/L (9-30)
[2024-12-02 16:30] LABS: Lipase 183 U/L (23-300)
[2024-12-02 16:31] LABS: Alanine Aminotransferase 22 IU/L (<50); Albumin 3.2 g/dL (3.5-5.0); Albumin Globulin Ratio 0.8 (1.0-2.8); Alkaline Phosphatase 80 U/L (38-126); Aspartate Aminotransferase 34 IU/L (17-59); BUN Creatinine Ratio 7.6 (6-22); Bilirubin Total 2.1 mg/dL (0.2-1.3); Blood Urea Nitrogen 16 mg/dL (9-20); Calcium 8.6 mg/dL (8.4-10.2); Carbon Dioxide 20 mmol/L (22-32); Chloride 115 mmol/L (98-107); Estimated Glomerular Filt Rate 32 mL/min (>60); Globulin 4.2 g/dL (1.7-4.1); Glucose 145 mg/dL (80-110); HEMOLYSIS < 15 (0-50); Potassium 3.6 mmol/L (3.4-5.1); Sodium 143 mmol/L (137-145); Total Protein 7.4 g/dL (6.3-8.2)
== END 2024-12-02 19:46 | disposition left against medical advice (07) ==
PROVIDERS: Emergency Medicine; Emergency Provider Student in an Organized Health Care Education/Training Program
DX: R79.89 Other specified abnormal findings of blood chemistry (principal); Z94.4 Liver transplant status
CPT/HCPCS: 80053; 82140; 83690; 85025; 99281

== ENCOUNTER → 2024-12-30 12:13 | Outpatient (CLI) | payer MEDICARE, OTHER, SELFPAY ==
[2024-12-30 13:28] LABS: Add Manual Diff / Slide Review NO; Basophils Absolute Auto 100 /uL (0-100); Basophils Percent Auto 1.1 % (0-2); Eosinophils Absolute Auto 500 /uL (0-450); Hematocrit 32.7 % (41-53); Hemoglobin 11.4 g/dL (13.5-17.5); Lymphocytes Absolute Auto 1400 /uL (1100-4500); Lymphocytes Percent Auto 21.9 % (25-40); Mean Corpuscular HGB Conc 34.9 % (30-36); Mean Corpuscular Hemoglobin 32.7 PG (26-34); Mean Corpuscular Volume 93.7 fL (80-100); Monocytes Absolute Auto 700 /uL (0-900); Monocytes Percent Auto 10.4 % (3-14); Neutrophils Absolute Auto 3800 /uL (1500-7000); Neutrophils Percent Auto 58.6 % (50-75); Platelet Count 208 X10^3/uL (150-400); Red Blood Cell Count 3.49 X10^6/uL (4.5-5.9); Red Cell Distribution Width 16.5 % (11.6-14.8); White Blood Cell Count 6.5 X10^3/uL (4.5-11.0)
[2024-12-30 13:45] LABS: INR 1.3 (0.9-1.3); Prothrombin Time 15.2 SECONDS (9.4-12.5)
[2024-12-30 13:51] LABS: Alanine Aminotransferase 21 IU/L (<50); Albumin Globulin Ratio 0.8 (1.0-2.8); Alkaline Phosphatase 87 U/L (38-126); Aspartate Aminotransferase 29 IU/L (17-59); BUN Creatinine Ratio 7.1 (6-22); Bilirubin Total 2.2 mg/dL (0.2-1.3); Bilirubin Unconjugated 1.8 mg/dL (0.0-1.1); Blood Urea Nitrogen 14 mg/dL (9-20); Calcium 8.2 mg/dL (8.4-10.2); Carbon Dioxide 19 mmol/L (22-32); Chloride 110 mmol/L (98-107); Estimated Glomerular Filt Rate 35 mL/min (>60); Gamma Glutamyl Transpeptidase 28 U/L (15-73); Globulin 3.8 g/dL (1.7-4.1); Glucose 119 mg/dL (80-110); HEMOLYSIS < 15 (0-50); Magnesium 1.6 mg/dL (1.6-2.3); Potassium 3.1 mmol/L (3.4-5.1); Sodium 138 mmol/L (137-145); Total Protein 6.8 g/dL (6.3-8.2)
[2024-12-31 03:39] LABS: Tacrolimus 4.1 ng/mL (5.0-20.0)
== END ==
PROVIDERS: Referring Provider Internal Medicine Gastroenterology; Visit Provider Internal Medicine Gastroenterology
DX: Z94.4 Liver transplant status (principal); Z48.23 Encounter for aftercare following liver transplant; Z51.81 Encounter for therapeutic drug level monitoring
CPT/HCPCS: 36415; 80048; 80076; 80197; 82977; 83735; 84100; 85025; 85610

== ENCOUNTER 2025-04-22 20:26 | Observation (INO) | payer MEDICARE, OTHER, SELFPAY ==
[2025-04-22 21:10] VITALS: BP 190/90; PULSE 89; RESP 21; TEMP 37.4; O2SAT 96; BMI 35.2
--- NOTE | 2025-04-22 21:19 | DI.RAD.S_ITS ---
PROCEDURE: XR CHEST 1V INDICATIONS: Shortness of breath TECHNIQUE: One view of the chest was acquired. COMPARISON: [facility], CR, XR CHEST 1V, 09/22/2024, 15:12. FINDINGS: Surgical changes and devices: Cholecystectomy clips Lungs and pleura: Moderate right effusion. Mild increased vascularity. Mediastinum: Mediastinal contours appear normal. Heart size is enlarged. Bones and chest wall: No suspicious bony lesions. Overlying soft tissues appear unremarkable. IMPRESSION: Increased vascularity effusions consistent with edema. Underlying areas of pneumonia, atelectasis or mass lesion within the effusion cannot be excluded. Recommend interval follow-up to document resolution. Dictated by: Melony Mcfadden M.D. on 04/22/2025 at 21:40 Approved by: Melony Mcfadden M.D. on 04/22/2025 at 21:40
--- NOTE | 2025-04-22 21:59 | EKG_ITS ---
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
[2025-04-22 22:02] LABS: Add Manual Diff / Slide Review NO; Hematocrit 34.5 % (41-53); Hemoglobin 12.0 g/dL (13.5-17.5); Lymphocytes Absolute Auto 1500 /uL (1100-4500); Mean Corpuscular HGB Conc 34.8 % (30-36); Mean Corpuscular Hemoglobin 32.1 PG (26-34); Mean Corpuscular Volume 92.2 fL (80-100); Platelet Count 266 X10^3/uL (150-400)
[2025-04-22 22:09] LABS: INR 1.4 (0.9-1.3); Prothrombin Time 15.3 SECONDS (9.4-12.5)
[2025-04-22 22:11] LABS: Lactate (Lactic Acid) 0.9 mmol/L (0.7-2.1)
[2025-04-22 22:12] LABS: Alanine Aminotransferase 21 IU/L (<50); Albumin 3.0 g/dL (3.5-5.0); Albumin Globulin Ratio 0.7 (1.0-2.8); Alkaline Phosphatase 126 U/L (38-126); Blood Urea Nitrogen 20 mg/dL (9-20); Calcium 8.1 mg/dL (8.4-10.2); Carbon Dioxide 21 mmol/L (22-32); Chloride 111 mmol/L (98-107); Estimated Glomerular Filt Rate 32 mL/min (>60); Globulin 4.5 g/dL (1.7-4.1); Glucose 122 mg/dL (70-99); HEMOLYSIS < 15 (0-50); Potassium 3.5 mmol/L (3.4-5.1); Sodium 139 mmol/L (137-145); Total Protein 7.5 g/dL (6.3-8.2)
[2025-04-22 22:23] LABS: NT-proBNP (BNP-Adult 18+) 7450 pg/mL (<125); Troponin I 0.024 ng/mL (0.01-0.034)
[2025-04-23] VITALS (7 sets, daily range): BP systolic 141–168; BP diastolic 70–97; PULSE 82–99; RESP 21–34; TEMP 36.6–37.4; O2SAT 95–97; BMI 34.8
--- NOTE | 2025-04-23 | DI.US.S_ITS ---
PROCEDURE: US THORACENTESIS THERAPUTIC INDICATIONS: Right pleural effusion TECHNIQUE: The indications, alternatives, benefits, risks, and complications of the procedure were explained to the patient. Written informed consent was obtained and placed in the chart. The chest was examined sonographically, and an appropriate site was chosen for thoracentesis. The skin of the right posterior chest was prepared and draped in the usual sterile fashion, and 1% lidocaine was infiltrated from the skin down to the pleural surface. A 19-gauge catheter-covered needle was then introduced into the pleural space, the catheter was advanced and the needle was withdrawn, and thereafter pleural fluid was aspirated. The catheter was then removed and a dressing was applied. COMPARISON: None. FINDINGS: Access site: Right posterior hemithorax. Needle: One-Step thoracentesis catheter with introducer needle. Fluid volume and description: 1600 mL clear nate colored fluid Fluid sent for diagnostic testing: No Medications: 1% lidocaine for local anaesthesia. Complications: None; post-procedural chest radiograph is pending to assess for pneumothorax. IMPRESSION: Successful ultrasound-guided thoracentesis. Dictated by: Marques Cain M.D. on 04/24/2025 at 8:56 Approved by: Marques Cain M.D. on 04/24/2025 at 8:59
--- NOTE | 2025-04-23 | DI.RAD.S_ITS ---
PROCEDURE: XR CHEST 1V INDICATIONS: POST THORACENTESIS, right TECHNIQUE: One view of the chest was acquired. COMPARISON: [facility], CR, XR CHEST 1V, 04/22/2025, 21:21. FINDINGS: Mildly decreased consolidation right mid and lower hemithorax represents some decrease in the moderate right pleural effusion. Underlying atelectasis/consolidation, pneumonia, mass or other process not excluded and continued follow-up is needed. Decreased mild pulmonary vascular congestion and mild bilateral perihilar and lower lobe peribronchial thickening, some of which may be related expiratory result; however, bronchitis, viral infection, asthma or other process should be considered. Cardiopericardial silhouette within normal limits in size. No pneumothorax. No consolidation left lung. No left pleural effusion. IMPRESSION: Moderate consolidation right mid and lower hemithorax commonly representing a combination of pleural effusion, atelectatic changes, pneumonia or other process as discussed above, decreased. No pneumothorax. Continued follow-up is needed. If symptoms persist or worsen, CT chest could be performed. Dictated by: Marques Cain M.D. on 04/23/2025 at 12:00 Approved by: Marques Cain M.D. on 04/23/2025 at 12:03
--- NOTE | 2025-04-23 01:12 | EKG_ITS ---
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
--- NOTE | 2025-04-23 01:12 | ED_ITS ---
HPI - SOB/Dyspnea General Chief Complaint: Shortness of Breath/Dyspnea Stated Complaint: fluid in rt lung, sob, weakness Time Seen by Provider: 04/22/25 21:20 Source: patient Mode of arrival: Wheelchair History of Present Illness HPI Narrative: 74-year-old male former smoker, history of prostate cancer, alcoholic cirrhosis status post liver transplant in 2009 on tacrolimus presents with shortness breath increasing the past 1-2 weeks along with dyspnea on exertion seen by PCP ordered chest x-ray outpatient told to come to the ER immediately since he had fluid in his lungs. He is not having abdominal pain or swelling, active chest pain, fever, chills, body aches, unintentional weight loss, and has not had a drank in years. Other than what is stated 14 point review systems. Related Data Home Medications ?Medication ?Instructions ?Recorded ?Confirmed tacrolimus 1 mg capsule, 1 mg PO BID 12/20/18 9 immediate-release Previous Rx's ?Medication ?Instructions ?Recorded ondansetron 4 mg disintegrating 4 mg PO BID-TID PRN na usea and 12/20/18 tablet vomiting #12 tabs betamethasone dipropionate 0.05 % 1 applic topical TID P PRN rash #15 03/17/21 topical cream grams ondansetron 4 mg disintegrating 4 mg PO TID-QID PRN na usea and 09/13/22 tablet vomiting #10 tabs lactulose 20 gram oral packet 20 g PO BID #30 ea 09/22 Allergies Allergy/AdvReac Type Severity Reaction Status Date / Time No Known Drug Allergies Allergy Verified 04/22/25 21:16 Review of Systems Review of Systems ROS Unobtainable: All systems reviewed & are unremarkable except as noted in HPI and below Patient History Medical History (Updated 04/23/25 @ 01:58 by Marquis Valdes DO) Chronic renal failure, stage 2 (mild) Cancer of prostate Sleep apnea Memory problem Hepatitis B 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 Well-developed patient, in mild distress. HEAD: Atraumatic. Normocephalic. EYES: Pupils equal round and reactive. Extraocular motions intact. No scleral icterus. No injection or drainage. ENT: Nose without bleeding, purulent drainage. Throat without erythema, tonsillar hypertrophy or exudate. Airway patent. NECK: Trachea midline. Non tender CARDIOVASCULAR: Regular rate and rhythm without murmurs, gallops, or rubs. RESPIRATORY: Crackles R side with decreased breath sounds GASTROINTESTINAL: Abdomen soft, non-tender, nondistended. EXTREMITIES: No edema or joint tenderness. BACK: Nontender without deformity or crepitance. No flank tenderness. NEURO: AOx3. SKIN: No rash or erythema of visible areas Initial Vital Signs Initial Vital Signs: Vital Signs Temperature 99.3 F 04/22/25 21:10 Pulse Rate 89 04/22/25 21:10 Respiratory Rate 21 04/22/25 21:10 Blood Pressure 190/90 H 04/22/25 21:10 Pulse Oximetry 96 04/22/25 21:10 Oxygen Delivery Method Room Air 04/22/25 21:10 Course Orders Ordered: ED Orders 04/22/25 21:19 XR chest 1V Stat EKG-12 Lead Stat Measure peak expiratory flow STAT RT Consult Eval and Treat STAT 04/22/25 21:51 Complete Blood Count AUTO DIFF Stat Comprehensive Metabolic Panel Stat Lactate (Lactic Acid) Stat NT-proBNP (BNP-Adult 18+) Stat Prothrombin Time INR Stat Troponin I Stat 04/23/25 01:06 Troponin I Stat EKG-12 Lead Stat Discontinued Medications Furosemide (Furosemide 40 Mg/4 Ml Vial) 40 mg IV NOW ONE Stop: 04/23/25 01:22 Last Admin: 04/23/25 01:33 Dose: 40 mg Vital Signs Vital signs: Vital Signs - 8 hr 04/22/25 21:10 04/23/25 01:16 04/23/25 01:30 Temperature 99.3 F Pulse Rate 89 86 Respiratory Rate 21 34 H Blood Pressure 190/90 H 168/79 H Pulse Oximetry 96 97 Oxygen Delivery Method Room Air 04/23/25 01:30 Temperature Pulse Rate 83 Respiratory Rate 30 H Blood Pressure Pulse Oximetry 97 Oxygen Delivery Method MDM - SOB/Dyspnea Lab Data 04/22/25 21:51 04/22/25 21:51 Labs: Lab Results 04/22/25 04/23/25 Range/Units 21:51 01:12 WBC 8.8 (4.5-11.0) X10^3/uL RBC 3.74 L (4.5-5.9) X10^6/uL Hgb 12.0 L (13.5-17.5) g/dL Hct 34.5 L (41-53) % MCV 92.2 (80-100) fL MCH 32.1 (26-34) PG MCHC 34.8 (30-36) % RDW 16.4 H (11.6-14.8) % Plt Count 266 (150-400) X10^3/uL Neut % (Auto) 63.9 (50-75) % Lymph % (Auto) 16.6 L (25-40) % [place] % (Auto) 15.2 H (3-14) % Eos % (Auto) 3.1 (2-4) % Baso % (Auto) 1.2 (0-2) % Neut # (Auto) 5600 (4059-4020) /uL Lymph # (Auto) 1500 (1404-1842) /uL [place] # (Auto) 1300 H (0-900) /uL Eos # (Auto) 300 (0-450) /uL Baso # (Auto) 100 (0-100) /uL PT 15.3 H (9.4-12.5) SECONDS INR 1.4 H (0.9-1.3) Sodium 139 (137-145) mmol/L Potassium 3.5 (3.4-5.1) mmol/L Chloride 111 H (98-107) mmol/L Carbon Dioxide 21 L (22-32) mmol/L BUN 20 (9-20) mg/dL Creatinine 2.10 H (0.66-1.25) mg/dL Estimated GFR 32 L (>60) mL/min BUN/Creatinine Ratio 9.5 (6-22) Glucose 122 H (70-99) mg/dL Lactate 0.9 (0.7-2.1) mmol/L Calcium 8.1 L (8.4-10.2) mg/dL Total Bilirubin 2.2 H (0.2-1.3) mg/dL AST 34 (17-59) IU/L ALT 21 (<50) IU/L Alkaline Phosphatase 126 (38-126) U/L Troponin I 0.024 0.027 (0.01-0.034) ng/mL NT-Pro-B Natriuret Pep 7450 H (<125) pg/mL Total Protein 7.5 (6.3-8.2) g/dL Albumin 3.0 L (3.5-5.0) g/dL Globulin 4.5 H (1.7-4.1) g/dL Albumin/Globulin Ratio 0.7 L (1.0-2.8) Imaging Data Chest x-ray: Radiologist's Impression: [address] [address] XRay Report Signed Patient: Marquis Gardner MR#: [id number] : 1950 Acct:[id number] Age/Sex: 74 / M Date of Service: 04/22/25 Loc: ED Accession Number: [id number] Procedure: XR chest 1V Ordering Provider: Marquis Valdes D.O. PROCEDURE: XR CHEST 1V INDICATIONS: Shortness of breath TECHNIQUE: One view of the chest was acquired. COMPARISON: [facility], CR, XR CHEST 1V, 09/22/2024, 15:12. FINDINGS: Surgical changes and devices: Cholecystectomy clips Lungs and pleura: Moderate right effusion. Mild increased vascularity. Mediastinum: Mediastinal contours appear normal. Heart size is enlarged. Bones and chest wall: No suspicious bony lesions. Overlying soft tissues appear unremarkable. IMPRESSION: Increased vascularity effusions consistent with edema. Underlying areas of pneumonia, atelectasis or mass lesion within the effusion cannot be excluded. Recommend interval follow-up to document resolution. ECG Data Interpretation: NSR HR 86 WA 156 QRS 104 QT [address]-t wave change Unchanged from 09/22/24 MDM Narrative Medical decision making narrative: Vital signs, nurse triage note, medication list, previous ER visits and all imaging study. EKG showed sinus rhythm with PAC rate 81. Chest x-ray increased vascularity effusions consistent with edema. BUN 20 creatinine 2.1 BNP 7450, troponin normal on 2 sets of troponin. Patient given dose of Lasix 40mg IV. Differential diagnosis CHF, malignancy, pneumonia, sepsis. Case discussed with Dr. Barry who has graciously accepted the patient for inpatient admission Discharge Plan Departure Patient Disposition: Admitted as Observation Clinical Impression: Pleural effusion Admit Date/Time: 04/23/25 01:55 Admit Provider: Ramses Nixon
[2025-04-23] MEDS: FUROSEMIDE 40 MG/4 ML VIAL IV ×3 (01:33→17:34)
[2025-04-23 01:49] LABS: Troponin I 0.027 ng/mL (0.01-0.034)
--- NOTE | 2025-04-23 06:28 | P.HP_ITS ---
History of Present Illness History of Present Illness Date Patient Seen: 04/23/25 Time Patient Seen: 06:28 Chief complaint: fluid in rt lung, sob, weakness Narrative: 74-year-old male with past medical history of prostate cancer, former tobacco abuse, alcoholism status post liver transplant 2009 on tacrolimus, presenting with shortness of breath. Of note the patient has been having progressive increasing shortness of breath over the last 1 to 2 weeks. The patient had a chest x-ray at his family care physician clinic today and was told to immediately go to the ER due to fluid in his lungs. The patient otherwise denies any lower extremity edema, fever, chills, nausea, vomiting, diarrhea, chest pain. In the emergency room, the patient remained hemodynamically stable and was saturating well on room air. Again imaging of the chest shows moderate size pleural effusion on the right. Although patient creatinine is 2.1. 2 are negative x 2. Lactates normal. Patient BNP was elevated at 7450. Patient denies any history of known heart failure. Patient was given IV Lasix 40 mg x 1. ER physician requested admission for symptomatic pleural effusion and to have the patient have thoracentesis in the morning. 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: [employer] leisure activities: art and other (Anything by water.) Smoking Status: Former smoker Tobacco: How many years used: 20 Smokeless tobacco user: other (Cigarettes) quit status: quit date established (~2000) second hand exposure: Yes (Off and on, nothing prolonged.) alcohol intake: never substance use type: does not use Meds Home Medications and Allergies Home Medications ?Medication ?Instructions ?Recorded ?Confirmed ?Type tacrolimus 1 mg capsule, 1 mg PO BID 12/20/18 5 History immediate-release betamethasone dipropionate 0.05 % 1 applic topical TID P PRN rash #15 03/17/21 04/23/25 Rx topical cream grams lactulose 20 gram oral packet 20 g PO BID #30 ea 09/2204/23/25 Rx Allergies Allergy/AdvReac Type Severity Reaction Status Date / Time No Known Drug Allergies Allergy Verified 04/22/25 21:16 Review of Systems Review of Systems ROS: Yes All systems reviewed with the patient and are negative except as otherwise documented Exam Vital Signs (past 8 hours): - 04/23/25 01:16 04/23/25 01:30 04/23/25 01:30 Temperature Pulse Rate 86 83 Respiratory Rate 34 H 30 H Blood Pressure 168/79 H Pulse Oximetry 97 97 Oxygen Delivery Method 04/23/25 02:00 04/23/25 02:00 04/23/25 02:03 Temperature Pulse Rate 87 Respiratory Rate 31 H Blood Pressure 162/87 H Pulse Oximetry 96 95 Oxygen Delivery Method Room Air 04/23/25 02:30 04/23/25 02:30 04/23/25 03:00 Temperature 99.3 F Pulse Rate 87 99 H Respiratory Rate 31 H 23 Blood Pressure 168/84 H 164/97 H Pulse Oximetry 95 95 Oxygen Delivery Method Room Air 04/23/25 03:16 Temperature Pulse Rate Respiratory Rate Blood Pressure Pulse Oximetry Oxygen Delivery Method Nasal Cannula Oxygen Delivery Method Nasal Cannula Narrative Exam Narrative: Physical Exam: GENERAL: The patient is not in any acute distressed. Awake and alert. HEENT: Nonicteric sclerae, PERRLA, EOMI. Oropharynx clear. Moist mucous membranes. Conjunctivae appear well perfused. HEART: Regular rate and rhythm without murmurs. No lower extremities edema. LUNGS: Clear to auscultation bilaterally. No wheezing, crackles or rhonchi ABDOMEN: Soft, positive bowel sounds, nontender. SKIN: No rash, no excessive bruising, petechiae, or purpura. NEUROLOGIC: AxO x 3. Cranial nerves II-XII intact without motor/sensory deficit. Objective Labs 04/22/25 21:51 04/22/25 21:51 Labs: Laboratory Results - last 24 hr 04/22/25 04/23/25 21:51 01:12 WBC 8.8 RBC 3.74 L Hgb 12.0 L Hct 34.5 L MCV 92.2 MCH 32.1 MCHC 34.8 RDW 16.4 H Plt Count 266 Neut % (Auto) 63.9 Lymph % (Auto) 16.6 L [place] % (Auto) 15.2 H Eos % (Auto) 3.1 Baso % (Auto) 1.2 Neut # (Auto) 5600 Lymph # (Auto) 1500 [place] # (Auto) 1300 H Eos # (Auto) 300 Baso # (Auto) 100 PT 15.3 H INR 1.4 H Sodium 139 Potassium 3.5 Chloride 111 H Carbon Dioxide 21 L BUN 20 Creatinine 2.10 H Estimated GFR 32 L BUN/Creatinine Ratio 9.5 Glucose 122 H Lactate 0.9 Calcium 8.1 L Total Bilirubin 2.2 H AST 34 ALT 21 Alkaline Phosphatase 126 Troponin I 0.024 0.027 NT-Pro-B Natriuret Pep 7450 H Total Protein 7.5 Albumin 3.0 L Globulin 4.5 H Albumin/Globulin Ratio 0.7 L Assessment & Plan Assessment & Plan narrative: Symptomatic right-sided moderate pleural effusion. Admit the patient to medical telemetry under observation. Patient did receive 40 mg IV Lasix in the ER. Will continue to monitor respiratory status. Of note the patient currently saturating well on room air. Will need to consult general surgery or IR in the morning for a diagnostic and therapeutic thoracentesis. CKD stage IV. Patient baseline creatinine 2. Today 2.1. Monitor for now with IV Lasix. History of liver cirrhosis with liver transplant. Resume home medication confirming home dosing in the morning. DVT prophylaxis SCDs due to observational status. Status full code. Disposition likely home in 1 to 2 days. - As the provider of this telehealth evaluation, requested by the patient's evaluating physician, I attest that I introduced myself to the patient, provided my credentials and determined that telemedicine via a real-time, 2 way interactive audio and video platform is an appropriate and effective means of providing this service. - I reviewed the patient's chart and had a discussion with the member of the patient's treatment team. - The patient and I mutually agreed with continuation of this evaluation via telemedicine. The patient consented for the telemedicine evaluation. - This virtual encounter was taken place from [place] by Dr. Ramses Nixon. The patient was evaluated at [facility]. The encounter was approximately 35 minutes. The nurse was present during the entire time of the encounter and was able to move the stethoscope in appropriate directions. Time-Based Coding :: [TOTAL MINUTES] spent with patient and on the chart (including review of chart, obtaining history, exam, reviewing outside data, placing orders, documenting exam and treatment plan, and counseling patient) on [DATE].
--- NOTE | 2025-04-23 08:26 | PM.HP.1 ---
History of Present Illness History of Present Illness Date Patient Seen: 04/23/25 Chief complaint: fluid in rt lung, sob, weakness Narrative: From night doctor: 74-year-old male with past medical history of prostate cancer, former tobacco abuse, alcoholism status post liver transplant 2009 on tacrolimus, presenting with shortness of breath. Of note the patient has been having progressive increasing shortness of breath over the last 1 to 2 weeks. The patient had a chest x-ray at his family care physician clinic today and was told to immediately go to the ER due to fluid in his lungs. The patient otherwise denies any lower extremity edema, fever, chills, nausea, vomiting, diarrhea, chest pain. In the emergency room, the patient remained hemodynamically stable and was saturating well on room air. Again imaging of the chest shows moderate size pleural effusion on the right. Although patient creatinine is 2.1. 2 are negative x 2. Lactates normal. Patient BNP was elevated at 7450. Patient denies any history of known heart failure. Patient was given IV Lasix 40 mg x 1. ER physician requested admission for symptomatic pleural effusion and to have the patient have thoracentesis in the morning. S: He has been short of breath and had edema for about a week. He denies any history of heart failure or heart attack in the past. He was not been having chest pain and denies orthopnea. He also denies cold symptoms, or cough. 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: [employer] leisure activities: art and other (Anything by water.) Smoking Status: Former smoker Tobacco: How many years used: 20 Smokeless tobacco user: other (Cigarettes) quit status: quit date established (~2000) second hand exposure: Yes (Off and on, nothing prolonged.) alcohol intake: never substance use type: does not use Meds Home Medications and Allergies Home Medications ?Medication ?Instructions ?Recorded ?Confirmed ?Type tacrolimus 1 mg capsule, 1 mg PO BID 12/20/18 04/23/25 History immediate-release betamethasone dipropionate 0.05 % 1 applic topical TIDP PRN rash #15 03/17/21 04/23/25 Rx topical cream grams lactulose 20 gram oral packet 20 g PO BID #30 ea 09/22/24 04/23/25 Rx Allergies Allergy/AdvReac Type Severity Reaction Status Date / Time No Known Drug Allergies Allergy Verified 04/22/25 21:16 Review of Systems Review of Systems Narrative: All else reviewed and otherwise unremarkable except as noted in the history and physical. Exam Vital Signs (past 8 hours): - 04/23/25 01:16 04/23/25 01:30 04/23/25 01:30 Temperature Pulse Rate 86 83 Respiratory Rate 34 H 30 H Blood Pressure 168/79 H Pulse Oximetry 97 97 Oxygen Delivery Method 04/23/25 02:00 04/23/25 02:00 04/23/25 02:03 Temperature Pulse Rate 87 Respiratory Rate 31 H Blood Pressure 162/87 H Pulse Oximetry 96 95 Oxygen Delivery Method Room Air 04/23/25 02:30 04/23/25 02:30 04/23/25 03:00 Temperature 99.3 F Pulse Rate 87 99 H Respiratory Rate 31 H 23 Blood Pressure 168/84 H 164/97 H Pulse Oximetry 95 95 Oxygen Delivery Method Room Air 04/23/25 03:16 Temperature Pulse Rate Respiratory Rate Blood Pressure Pulse Oximetry Oxygen Delivery Method Nasal Cannula Oxygen Delivery Method Nasal Cannula Narrative Exam Narrative: NAD, alert and oriented, fluent speech, calm. Normocephalic skull, EOMI, anicteric sclera, symmetric pupils. Oropharynx unremarkable, no droop. Neck supple, midline trachea, no adenopathy. Lungs clear except diminished breath sounds in the right base, normal rate and effort. Heart regular, no murmur gallop or rub. Abdomen is soft, non distended and non tender. Extremities are free of edema. Skin is free of rash or lesions. Joints are not swollen or deformed. Judgment appears to be normal. Objective ECG Impression: ntervals [place] Rate: 91 P: 1 [place]: 148 QRS: -38 QRSD: 108 T: 74 QT: 364 QTc: 447 Interpretive Statements Sinus rhythm with premature atrial complexes Left axis deviation Septal infarct , age undetermined Imaging Chest x-ray: Radiologist's impression: Increased vascularity effusions consistent with edema. Underlying areas of pneumonia, atelectasis or mass lesion within the effusion cannot be excluded. Recommend interval follow-up to document resolution. Labs 04/22/25 21:51 04/22/25 21:51 Labs: Laboratory Results - last 24 hr 04/22/25 04/23/25 21:51 01:12 WBC 8.8 RBC 3.74 L Hgb 12.0 L Hct 34.5 L MCV 92.2 MCH 32.1 MCHC 34.8 RDW 16.4 H Plt Count 266 Neut % (Auto) 63.9 Lymph % (Auto) 16.6 L [place] % (Auto) 15.2 H Eos % (Auto) 3.1 Baso % (Auto) 1.2 Neut # (Auto) 5600 Lymph # (Auto) 1500 [place] # (Auto) 1300 H Eos # (Auto) 300 Baso # (Auto) 100 PT 15.3 H INR 1.4 H Sodium 139 Potassium 3.5 Chloride 111 H Carbon Dioxide 21 L BUN 20 Creatinine 2.10 H Estimated GFR 32 L BUN/Creatinine Ratio 9.5 Glucose 122 H Lactate 0.9 Calcium 8.1 L Total Bilirubin 2.2 H AST 34 ALT 21 Alkaline Phosphatase 126 Troponin I 0.024 0.027 NT-Pro-B Natriuret Pep 7450 H Total Protein 7.5 Albumin 3.0 L Globulin 4.5 H Albumin/Globulin Ratio 0.7 L Assessment & Plan Assessment & Plan narrative: 1. Symptomatic right-sided moderate pleural effusion. Admit the patient to medical telemetry under observation. Patient did receive 40 mg IV Lasix in the ER. Will continue to monitor respiratory status. Of note the patient currently saturating well on room air. Will need to consult general surgery or IR in the morning for a diagnostic and therapeutic thoracentesis. 2. CKD stage IV. Patient baseline creatinine 2. Today 2.1. Monitor for now with IV Lasix. 3. History of liver cirrhosis with liver transplant. Resume home medication confirming home dosing in the morning. PLAN: -thoracentesis. -echo to assess LV function. -diuresis with Lasix 40 IV q.12 hours. DVT prophylaxis SCDs due to observational status. Status full code. Time-Based Coding :: 35 min spent with patient and on the chart (including review of chart, obtaining history, exam, reviewing outside data, placing orders, documenting exam and treatment plan, and counseling patient) on 04/23. Quality MIPS - Admit The patient?s Advance Care plan is not present because I confirmed today that the patient does not wish or was not able to name a surrogate decision maker or provide an Advance Care Plan.: Yes MIPS - Meds 'Current medications' to include all prescriptions, [id number] products, herbals, cannabis/cannabidiol products, and vitamin/mineral/dietary (nutritional) supplements. I have utilized all available resources to obtain, update, or review the patient?s current medications. [If Yes, STOP here]: Yes
--- NOTE | 2025-04-23 08:49 | DI.ECHO.S_ITS ---
[place] [facility]---------+ [facility] : : [address] : : [place] : : [id number] : : Phone: [phone] Echocardiogram Report + + :Name: COMFORT GUNDERSON Study Date: 04/23/2025 Height: 66 in : :Hospital ReadingLocation: Weight: 216 lb : : Gender: Male BSA: 2.1 m2 : :: 1950 Age: 74 yrs BP: 164/97 mmHg: :Reason For Study: DYSPNEA : :Ordering Physician: ELDER, : :SOLOMON Correa Performed By: Melisa Pierce : :Referring: SOLOMON FRIEDMAN : + + Interpretation Summary There is moderate concentric left ventricular hypertrophy. The ejection fraction is estimated to be 50-55%. Diastolic function is indeterminate. The left atrium is mildly dilated. The right ventricle is normal in size and function. There is mild mitral regurgitation. There is mild aortic regurgitation. Pulmonary artery pressures cannot be estimated because of the lack of a measurable TR jet velocity but the IVC suggests a CVP of around 3 mmHg. No significant change compared to prior study 06/30/2010. Procedure: A two-dimensional transthoracic echocardiogram with color flow and Doppler was performed. The study quality was technically difficult. Comparison is made with the echocardiogram of 06/30/2010. The patient was in sinus rhythm with heart rates between 75-80 bpm during the exam. Left Ventricle: The left ventricle is normal in size. There is moderate concentric left ventricular hypertrophy. The ejection fraction is estimated to be 50-55%. Diastolic function is indeterminate. Right Ventricle: The right ventricle is normal in size and function. Atria: The left atrium is mildly dilated. Right atrial size is normal. There is no Doppler evidence for an interatrial shunt. Mitral Valve: The mitral valve leaflets appear to open well. There is mild mitral regurgitation. Aortic Valve: The aortic valve is trileaflet. The aortic valve opens well. There is no aortic valve stenosis. There is mild aortic regurgitation. Tricuspid Valve: The tricuspid valve leaflets are thin and pliable. There is trace tricuspid regurgitation. Pulmonary artery pressures cannot be estimated because of the lack of a measurable TR jet velocity but the IVC suggests a CVP of around 3 mmHg. Pulmonic Valve: The pulmonic valve leaflets are thin and pliable; valve motion is normal. There is no pulmonic valvular regurgitation. Great Vessels: The aortic root is normal size. The ascending aorta is at the upper limits of normal in size. The IVC is of normal diameter and collapses greater than 50% with a sniff. This suggests a low right atrial pressure of 3 mm Hg. Pericardium/ Pleura There is no pericardial effusion. Post right thoracentesis. MMode/2D Measurements & Calculations LVIDd: 5.5 cm LVOT diam: 2.4 cm LVIDs: 3.9 cm Ao root diam: 3.8 cm FS: 28.2 % asc Aorta Diam: 3.8 cm EPSS: 1.2 cm Ao Arch Diam (Prox Trans): 3.1 cm IVSd: 1.4 cm LVPWd: 1.4 cm LV torres. diameter/BSA (cm/m^2): 2.7 LV sys. diameter/BSA (cm/m^2): 1.9 LA A2 area: 23.1 cm2 RA long axis: 5.2 cm LA A4 area: 19.9 cm2 RA area: 16.3 cm2 LA length (vol): 4.9 cm RA vol: 43.3 ml LA vol: 79.0 ml RA : 20.9 ml/m2 LA vol index: 38.2 ml/m2 IVC diam: 1.2 cm RVD1 (basal): 3.8 cm RVD2 (mid): 3.5 cm TAPSE: 2.7 cm Doppler Measurements & Calculations Ao V2 max: 150.9 cm/sec LVOT Max Gurpreet: 110.3 cm/sec Ao V2 mean: 97.6 cm/sec LV V1 max P.9 mmHg Ao max P.1 mmHg LV V1 VTI: 20.0 cm Ao mean P.4 mmHg HUSAM(I,D): 3.4 cm2 Ao V2 VTI: 25.6 cm HUSAM(V,D): 3.2 cm2 sev ratio: 0.78 HUSAM indexed to BSA (cm^2/m^2): 1.6 MV E max gurpreet: 64.8 cm/sec PA V2 max: 102.3 cm/sec MV A max gurpreet: 93.6 cm/sec PA V2 mean: 67.0 cm/sec MV E/A: 0.69 PA mean P.0 mmHg Med Peak E' Gurpreet: 5.6 cm/sec PA pr(Accel): 43.0 mmHg E/E' med: 11.6 Lat Peak E' Gurpreet: 5.6 cm/sec E/E' lat: 11.6 E/e' average: 11.6 MV dec time: 0.21 sec SV(LVOT): 86.7 ml Reading Physician:02:32 PM
[2025-04-23] MEDS: TACROLIMUS 0.5 MG CAPSULE 1 MG PO (09:12)
[2025-04-23] MEDS: LACTULOSE 20 GM/30 ML SOLUTION PO (09:12)
--- NOTE | 2025-04-23 14:51 | CM.DANOTE ---
DCP Assessment Note: Pt is a 74yo male, resident of [facility], is admitted for pleural effusion. Pt lives in a house with his life partner, Rebeca, and their family caregiver/Rebeca's daughter, Terra. Pt's Primary Care Provider is Dr. Shreyas Garcia MD and insurance is [employer]. Reviewed chart and discussed with multidisciplinary team pt's medical status and initial discharge needs. Per Provider, pt pending echocardiogram results and had thoracentesis completed this morning. DCP met w/patient at bedside; introduced self and role. Patient was found in bed, alert and oriented, cooperative with assessment. Present in the room is pt's partner, Rebeca. Pt confirmed living situation and good support in and their family caregiver, Terra, who is also pt's stepdaughter. Pt expressed preference in discharge home when cleared. Pt has no prior history of home health or SNF Rehab, denies need for any referrals in the community at this time. Pt and confirm that pt is enrolled in the [facility] [employer] [facility]. Plan: Anticipating dc home with family on 04/23 or when medically cleared. CM team will follow closely for coordination of discharge plans. Brit Calderon [facility] Discharge Planning/Care Management CM Discharge Assessment Start: 04/23/25 03:16 Freq: Status: Active Protocol: Document 04/23/25 14:49 MW (Rec: 04/23/25 14:51 MW [id number]) Discharge Planning Assessment Assigned Discharge CARA Perea Director Of Maternity Services DPOA/Assigned Rebeca Mccollum, Partner Designee Name Contact Information [phone] Advance Directives? No History Provided By Patient Has Patient been No admitted in last 30 days? Prior Living House Arrangements Household Members significant other,caregiver Type of Relies on Others transporation used prior to admit Independent with ADL Yes 's Is patient alert and Yes oriented? Needs Assistance Grooming,Meal Prep,Home Chores / Shopping With Caregiver for No Another DME Already Rented / FWW / Walker Owned Patient/Family Home with Home Health Preference Discharge Plan Home Whiteboard Updated Yes in Patient Room with name and ext. # of Highway Research Engineer Comment [phone] Review Status In Process Please Provide Date 04/23/25 Initial DC Assessment Was Performed Next Review Type Continued Stay Review
--- NOTE | 2025-04-23 15:11 | DI.CT.S_ITS ---
PROCEDURE: CT CHEST ABD PEL WO CON INDICATIONS: pleural effusion and liver masses TECHNIQUE: After the administration of oral contrast, 5 mm thick sections acquired from the lung apices to the symphysis pubis. 5 mm thick coronal and sagittal reformats acquired, with additional 7 mm coronal MIP reformats through the lungs. For radiation dose reduction, the following was used: automated exposure control, adjustment of mA and/or kV according to patient size. COMPARISON: [facility], CT, CT CHEST ABD PEL W CON, 09/12/2022, 22:44. FINDINGS: Image quality: Diagnostic. CHEST: Lower Neck: No enlarged lymph nodes. Thyroid: No thyroid nodules which require sonographic follow up, per consensus guidelines. Axillae: No enlarged lymph nodes. Chest Wall: Unremarkable. Bones: Unremarkable. Lungs and Pleura: There is a small to moderate right pleural effusion, with some loculation posteriorly and in the major fissure. There is moderate solid consolidation the right lower lobe the right middle lobe, however also with some ground-glass density in the right lower lobe. Heart: Heart size is normal. No pericardial effusion. Thoracic Vessels: The aorta and pulmonary arteries demonstrate normal size. Mediastinum and Britt: No enlarged lymph nodes. Esophagus: No wall thickening. No hiatal hernia. ABDOMEN: Liver: Stable morphology of the liver post liver transplant. No definite focal lesion seen. Gallbladder: Status post cholecystectomy Biliary ducts: No biliary dilation. Pancreas: No ductal dilation. Spleen: No focal lesion seen. Extensive splenorenal as well as upper abdominal varices again seen. Adrenal Glands: No adrenal nodules. Kidneys and Ureters: No hydronephrosis. No solid mass. No complex renal cystic lesion which requires follow up. Stomach and Bowel: Normal colonic caliber, without significant wall thickening. Peritoneum: No abnormal intraperitoneal fluid. No free air. Ventral Wall: No hernia. Abdominal Nodes: No retroperitoneal or mesenteric adenopathy by size criteria. Vessels: Aorta and inferior vena cava are normal in size. PELVIS: Pelvic Organs: Status post prostatectomy. No mass seen. Bladder: Unremarkable. Pelvic Nodes: No enlarged lymph nodes. Miscellaneous: No inguinal hernias are seen. Bones: No aggressive osseous abnormality. IMPRESSION: 1. There is a small to moderate, partially loculated right pleural effusion. No definite pleural mass on this unenhanced study. 2. There is associated moderate right lower lobe and right middle lobe compressive atelectasis. Some ground-glass density in the right lower lobe centrally, may represent superimposed pneumonia or aspiration. 3. No definite focal liver lesions of this unenhanced study. 4. Redemonstration of signs of portal hypertension with extensive abdominal varices. No ascites. Dictated by: Anoop Calderon M.D. on 04/23/2025 at 16:40 Approved by: Anoop Calderon M.D. on 04/23/2025 at 16:47
--- NOTE | 2025-04-23 17:48 | PM.DS.1 ---
History of Present Illness History of Present Illness Chief complaint: fluid in rt lung, sob, weakness Narrative: From night doctor: 74-year-old male with past medical history of prostate cancer, former tobacco abuse, alcoholism status post liver transplant 2009 on tacrolimus, presenting with shortness of breath. Of note the patient has been having progressive increasing shortness of breath over the last 1 to 2 weeks. The patient had a chest x-ray at his family care physician clinic today and was told to immediately go to the ER due to fluid in his lungs. The patient otherwise denies any lower extremity edema, fever, chills, nausea, vomiting, diarrhea, chest pain. In the emergency room, the patient remained hemodynamically stable and was saturating well on room air. Again imaging of the chest shows moderate size pleural effusion on the right. Although patient creatinine is 2.1. 2 are negative x 2. Lactates normal. Patient BNP was elevated at 7450. Patient denies any history of known heart failure. Patient was given IV Lasix 40 mg x 1. ER physician requested admission for symptomatic pleural effusion and to have the patient have thoracentesis in the morning. S: He has been short of breath and had edema for about a week. He denies any history of heart failure or heart attack in the past. He was not been having chest pain and denies orthopnea. He also denies cold symptoms, or cough. Discharge Providers Provider Date of admission: 04/23/25 01:55 Discharge Date: 04/23/25 Primary care physician: Doctor Doug MD Consults: Radiology for thoracentesis. Discharge provider: Francisco Hyatt MD Summary Hospital Course Discharge Diagnosis: 1. Symptomatic right-sided moderate pleural effusion. 2. CKD stage IV. Patient baseline creatinine 2. 3. History of liver cirrhosis with liver transplant. Hospital Course: Patient came in with volume overload and shortness a breath. He had a pleural effusion in the right side. He was given diuretics and improved with regards to his volume overload and edema. He underwent a therapeutic thoracentesis without complication. [place] better and was felt to be stable for discharge home. Imaging does indicate a possible right base infiltrate. The patient was on antibiotics but we will continue on antibiotics for several more days. He will be given cefdinir to complete a course of antibiotics. In addition the patient was taking diuretics at home and we will follow up with his primary care within the next week. Status at Discharge Cognitive/behavioral status at discharge: oriented Functional status at discharge: independent ambulation Overall status at discharge: patient is back to baseline Time Spent with Patient Time spent: Greater than 30 minutes Exam Vital Signs (past 8 hours): - 04/23/25 12:10 Temperature 97.8 F Pulse Rate 82 Respiratory Rate 21 Blood Pressure 141/70 H Pulse Oximetry 95 Oxygen Flow Rate 0 Oxygen Delivery Method Nasal Cannula Oxygen Flow Rate 0 Narrative Exam Narrative: NAD, alert and oriented. Fluent speech. Lungs are clear, normal rate and effort. Decreased breath sounds in the right base. Heart is regular, no murmur gallop or rub. Abdomen is soft, non distended. Extremities are free of edema. Objective ECG Impression: Intervals [place] Rate: 91 P: 1 DC: 148 QRS: -38 QRSD: 108 T: 74 QT: 364 QTc: 447 Interpretive Statements Sinus rhythm with premature atrial complexes Left axis deviation Septal infarct , age undetermined Imaging Multiple studies:: Radiologist's impression: Chest abdomen pelvis CT: CHEST: Lower Neck: No enlarged lymph nodes. Thyroid: No thyroid nodules which require sonographic follow up, per consensus guidelines. Axillae: No enlarged lymph nodes. Chest Wall: Unremarkable. Bones: Unremarkable. Lungs and Pleura: There is a small to moderate right pleural effusion, with some loculation posteriorly and in the major fissure. There is moderate solid consolidation the right lower lobe the right middle lobe, however also with some ground-glass density in the right lower lobe. Heart: Heart size is normal. No pericardial effusion. Thoracic Vessels: The aorta and pulmonary arteries demonstrate normal size. Mediastinum and Britt: No enlarged lymph nodes. Esophagus: No wall thickening. No hiatal hernia. ABDOMEN: Liver: Stable morphology of the liver post liver transplant. No definite focal lesion seen. Gallbladder: Status post cholecystectomy Biliary ducts: No biliary dilation. Pancreas: No ductal dilation. Spleen: No focal lesion seen. Extensive splenorenal as well as upper abdominal varices again seen. Adrenal Glands: No adrenal nodules. Kidneys and Ureters: No hydronephrosis. No solid mass. No complex renal cystic lesion which requires follow up. Stomach and Bowel: Normal colonic caliber, without significant wall thickening. Peritoneum: No abnormal intraperitoneal fluid. No free air. Ventral Wall: No hernia. Abdominal Nodes: No retroperitoneal or mesenteric adenopathy by size criteria. Vessels: Aorta and inferior vena cava are normal in size. PELVIS: Pelvic Organs: Status post prostatectomy. No mass seen. Bladder: Unremarkable. Pelvic Nodes: No enlarged lymph nodes. Miscellaneous: No inguinal hernias are seen. Bones: No aggressive osseous abnormality. IMPRESSION: 1. There is a small to moderate, partially loculated right pleural effusion. No definite pleural mass on this unenhanced study. 2. There is associated moderate right lower lobe and right middle lobe compressive atelectasis. Some ground-glass density in the right lower lobe centrally, may represent superimposed pneumonia or aspiration. 3. No definite focal liver lesions of this unenhanced study. 4. Redemonstration of signs of portal hypertension with extensive abdominal varices. No ascites. Echo: There is moderate concentric left ventricular hypertrophy. The ejection fraction is estimated to be 50-55%. Diastolic function is indeterminate. The left atrium is mildly dilated. The right ventricle is normal in size and function. There is mild mitral regurgitation. There is mild aortic regurgitation. Pulmonary artery pressures cannot be estimated because of the lack of a measurable TR jet velocity but the IVC suggests a CVP of around 3 mmHg. No significant change compared to prior study 06/30/2010. Thoracentesis ultrasound: FINDINGS: Access site: Right posterior hemithorax. Needle: One-Step thoracentesis catheter with introducer needle. Fluid volume and description: 1600 mL clear nate colored fluid Fluid sent for diagnostic testing: No Medications: 1% lidocaine for local anaesthesia. Complications: None; post-procedural chest radiograph is pending to assess for pneumothorax. IMPRESSION: Successful ultrasound-guided thoracentesis. Chest x-ray before thoracentesis: Increased vascularity effusions consistent with edema. Underlying areas of pneumonia, atelectasis or mass lesion within the effusion cannot be excluded. Recommend interval follow-up to document resolution. Chest ray after thoracentesis: Moderate consolidation right mid and lower hemithorax commonly representing a combination of pleural effusion, atelectatic changes, pneumonia or other process as discussed above, decreased. No pneumothorax. Continued follow-up is needed. Labs 04/22/25 21:51 04/22/25 21:51 Labs: Laboratory Results - last 24 hr 04/22/25 04/23/25 21:51 01:12 WBC 8.8 RBC 3.74 L Hgb 12.0 L Hct 34.5 L MCV 92.2 MCH 32.1 MCHC 34.8 RDW 16.4 H Plt Count 266 Neut % (Auto) 63.9 Lymph % (Auto) 16.6 L [place] % (Auto) 15.2 H Eos % (Auto) 3.1 Baso % (Auto) 1.2 Neut # (Auto) 5600 Lymph # (Auto) 1500 [place] # (Auto) 1300 H Eos # (Auto) 300 Baso # (Auto) 100 PT 15.3 H INR 1.4 H Sodium 139 Potassium 3.5 Chloride 111 H Carbon Dioxide 21 L BUN 20 Creatinine 2.10 H Estimated GFR 32 L BUN/Creatinine Ratio 9.5 Glucose 122 H Lactate 0.9 Calcium 8.1 L Total Bilirubin 2.2 H AST 34 ALT 21 Alkaline Phosphatase 126 Troponin I 0.024 0.027 NT-Pro-B Natriuret Pep 7450 H Total Protein 7.5 Albumin 3.0 L Globulin 4.5 H Albumin/Globulin Ratio 0.7 L PFSH Medical History Chronic renal failure, stage 2 (mild) Cancer of prostate Sleep apnea Memory problem Hepatitis B 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 Right pleural effusion and possible infiltrate, present on admission and improved. 2. Volume overload with a leg edema, improved. 3. Liver cirrhosis, stable. 4. History of possible liver lesions on previous imaging, CT scan of the abdomen and pelvis at this time does not reveal any clear evidence of lesions concerning for metastatic cancer. Plan of Treatment: Discharge home, cefdinir 300 b.i.d. for an additional several days. Close follow up with PCP. He was completing a course of azithromycin from his PCP. Have also added a low dose of Lasix once a day for the next 5 days so that he can be a reassessed for his volume and have a BMP to reassess his be he was potassium before deciding on ongoing Lasix dosing. Discharge Plan Discharge Plan Patient Disposition: Home Provider Discharge Comment: Patient is stable for discharge. Discharge orders & Medications Prescriptions: New furosemide [Lasix] 20 mg tablet 20 mg PO DAILY Qty: 7 0RF cefdinir 300 mg capsule 300 mg PO BID Qty: 10 0RF Continued betamethasone dipropionate 0.05 % cream 1 applic Topical TIDP PRN (Reason: rash) Qty: 15 0RF Rx Instructions: PT NOT SEEN SINCE 2018 HE WILL NEED TO BE SEEN BEFORE ANY FUTURE FILLS 03/17/21 lactulose 20 gram packet 20 g PO BID Qty: 30 3RF Patient Comments: Twice per week tacrolimus 1 mg capsule 1 mg PO BID Follow up/Referrals: Doctor Camacho MD [Primary Care Provider, Medical] Diet/Activity/Treatments Diet: Low-sodium Visit Report/Discharge Packet Instructions: DI for Pleural Effusion Stand Alone Forms: Patient Portal/API Discharge Data Primary Care Provider: Doctor Doug Attending Provider: Ramses Nixon Admit Date/Time: 04/23/25 01:55
--- NOTE | 2025-04-23 18:12 | PC.NURSE ---
D/c packet reviewed with pt at bedside. Pt agreeable to d/c. IV removed. Pt exited via w/c with [employer] to private vehicle.
== END 2025-04-23 18:16 | disposition home or self-care (01) ==
LOC: ED 21:20 → AC 04-23 01:56
PROVIDERS: Admitting Provider Internal Medicine; Emergency Provider Family Medicine; Visit Provider Internal Medicine
DX: J90 Pleural effusion, not elsewhere classified (principal); R53.1 Weakness; Z85.46 Personal history of malignant neoplasm of prostate; Z94.4 Liver transplant status; Z87.891 Personal history of nicotine dependence
CPT/HCPCS: 32555; 36415; 71045; 71250; 74176; 80053; 83605; 83880; 84484; 85025; 85610; 93005; 93306; 96374; 96376; 99284; G0378; J1938; J7507